=== PATIENT | male | born 1935 | race Caucasian/White ===

== ENCOUNTER → 2016-05-17 | Outpatient (CLI) | payer OTHER ==
[~2016-05-17] MED LIST: ACAR50TA2 PO; ASPI81TA28 PO; CHOL100027 PO; GLIP1TAB85 PO; LISI-790 PO; MULTTAB58 PO; OMEGCAP2 PO; SITA50TA5 PO
[2016-05-17 10:16] LABS: ESTIMATED AVERAGE GLUCOSE 157 mg/dl; HA1C FLAG Normal (Normal)
[2016-05-17 10:55] LABS: RATIO 21.2 mcg/mg (0-30.0)
== END | disposition home or self-care (01) ==
LOC: C.LAB 09:18
PROVIDERS: ATTEND Internal Medicine Endocrinology, Diabetes & Metabolism
DX: E11.43 Type 2 diabetes mellitus with diabetic autonomic (poly)neuropathy (principal); E11.21 Type 2 diabetes mellitus with diabetic nephropathy; E11.42 Type 2 diabetes mellitus with diabetic polyneuropathy; R80.9 Proteinuria, unspecified; E78.2 Mixed hyperlipidemia

== ENCOUNTER → 2016-08-13 | Outpatient (CLI) | payer OTHER ==
[2016-08-13 13:32] LABS: ESTIMATED AVERAGE GLUCOSE 160 mg/dl; HA1C FLAG Normal (Normal)
[2016-08-13 13:48] LABS: BLOOD UREA NITROGEN 25 mg/dl (7-18); BUN/CREATININE RATIO 19.4 (10-20); CALCIUM 8.7 mg/dl (8.5-10.1); CARBON DIOXIDE 31 mmol/L (21-32); CHLORIDE 103 mmol/L (98-107); GLUCOSE 226 mg/dl (70-99); POTASSIUM 4.4 mmol/L (3.5-5.1); SODIUM 140 mmol/L (136-145)
== END | disposition home or self-care (01) ==
LOC: C.LAB 12:21
PROVIDERS: ATTEND Internal Medicine Endocrinology, Diabetes & Metabolism
DX: E11.43 Type 2 diabetes mellitus with diabetic autonomic (poly)neuropathy (principal); E11.21 Type 2 diabetes mellitus with diabetic nephropathy; E11.42 Type 2 diabetes mellitus with diabetic polyneuropathy; R80.9 Proteinuria, unspecified; E78.2 Mixed hyperlipidemia

== ENCOUNTER → 2016-11-19 | Outpatient (CLI) | payer OTHER ==
[2016-11-19 10:51] LABS: BLOOD UREA NITROGEN 20 mg/dl (7-18); BUN/CREATININE RATIO 18.4 (10-20); CALCIUM 8.8 mg/dl (8.5-10.1); CARBON DIOXIDE 29 mmol/L (21-32); CHLORIDE 107 mmol/L (98-107); GLUCOSE 118 mg/dl (70-99); POTASSIUM 4.6 mmol/L (3.5-5.1); SODIUM 140 mmol/L (136-145)
[2016-11-19 11:02] LABS: CHOLESTEROL 114 mg/dl (0-200); CHOLESTEROL/HDL RATIO 3.5; HDL CHOLESTEROL 33 mg/dl; LDL CHOLESTEROL CALCULATED 66 mg/dl; TRIGLYCERIDES 75 mg/dl (0-150); VERY LOW DENSITY LIPOPROT CALC 15 mg/dl
[2016-11-19 12:54] LABS: ESTIMATED AVERAGE GLUCOSE 169 mg/dl; HA1C FLAG Normal (Normal)
== END | disposition home or self-care (01) ==
LOC: C.LAB 09:35
PROVIDERS: ATTEND Internal Medicine Endocrinology, Diabetes & Metabolism
DX: E11.43 Type 2 diabetes mellitus with diabetic autonomic (poly)neuropathy (principal); E11.21 Type 2 diabetes mellitus with diabetic nephropathy; E11.42 Type 2 diabetes mellitus with diabetic polyneuropathy; R80.9 Proteinuria, unspecified; E78.2 Mixed hyperlipidemia

== ENCOUNTER → 2017-02-26 | Outpatient (CLI) | payer OTHER ==
[2017-02-26 12:32] LABS: ESTIMATED AVERAGE GLUCOSE 177 mg/dl; HA1C FLAG Normal (Normal)
[2017-02-26 13:15] LABS: BLOOD UREA NITROGEN 19 mg/dl (7-18); BUN/CREATININE RATIO 16.8 (10-20); CALCIUM 9.2 mg/dl (8.5-10.1); CARBON DIOXIDE 29 mmol/L (21-32); CHLORIDE 101 mmol/L (98-107); CREATININE 1.11 mg/dl (0.60-1.40); GLUCOSE 217 mg/dl (70-99); POTASSIUM 4.6 mmol/L (3.5-5.1); SODIUM 137 mmol/L (136-145)
[2017-02-26 13:16] LABS: TOTAL IRON BINDING CAPACITY 311 mcg/dl (250-450)
== END | disposition home or self-care (01) ==
LOC: C.LAB 09:44
PROVIDERS: ATTEND Internal Medicine Endocrinology, Diabetes & Metabolism
DX: E11.21 Type 2 diabetes mellitus with diabetic nephropathy (principal); E11.42 Type 2 diabetes mellitus with diabetic polyneuropathy; R80.9 Proteinuria, unspecified; E78.2 Mixed hyperlipidemia; R40.0 Somnolence

== ENCOUNTER → 2017-05-29 | Outpatient (CLI) | payer OTHER ==
[2017-05-29 17:41] LABS: BLOOD UREA NITROGEN 20 mg/dl (7-18); CALCIUM 8.8 mg/dl (8.5-10.1); CARBON DIOXIDE 28 mmol/L (21-32); CREATININE 1.08 mg/dl (0.60-1.40); GLUCOSE 187 mg/dl (70-99); POTASSIUM 4.3 mmol/L (3.5-5.1); SODIUM 138 mmol/L (136-145)
[2017-05-29 17:43] LABS: CREATININE RANDOM URINE 79.1 mg/dl
[2017-05-30 06:15] LABS: HEMOGLOBIN A1C 7.6 % (4.5-5.6)
== END | disposition home or self-care (01) ==
LOC: C.LAB 15:41
PROVIDERS: ATTEND Nurse Practitioner Family
DX: E11.43 Type 2 diabetes mellitus with diabetic autonomic (poly)neuropathy (principal); E11.21 Type 2 diabetes mellitus with diabetic nephropathy; E11.42 Type 2 diabetes mellitus with diabetic polyneuropathy; R80.9 Proteinuria, unspecified; E78.2 Mixed hyperlipidemia; R40.0 Somnolence

== ENCOUNTER → 2017-09-08 | Outpatient (CLI) | payer OTHER ==
[2017-09-08 16:00] LABS: CREATININE RANDOM URINE 74.7 mg/dl
[2017-09-09 06:02] LABS: HEMOGLOBIN A1C 7.9 % (4.5-5.6)
== END | disposition home or self-care (01) ==
LOC: C.LAB 14:39
PROVIDERS: ATTEND Nurse Practitioner Family
DX: E11.43 Type 2 diabetes mellitus with diabetic autonomic (poly)neuropathy (principal); E11.42 Type 2 diabetes mellitus with diabetic polyneuropathy; E11.21 Type 2 diabetes mellitus with diabetic nephropathy; R80.9 Proteinuria, unspecified; E78.2 Mixed hyperlipidemia; R40.0 Somnolence

== ENCOUNTER → 2017-12-02 | Outpatient (CLI) | payer OTHER ==
[~2017-12-02] MED LIST changes: +DXY100 PO; +KFL250 PO; +NRN100 PO; +SIMV20TA5 PO
[2017-12-02 12:25] LABS: BLOOD UREA NITROGEN 23 mg/dl (7-18); CARBON DIOXIDE 27 mmol/L (21-32); CHOLESTEROL 115 mg/dl (0-200); GLUCOSE 132 mg/dl (70-99); LDL CHOLESTEROL CALCULATED 56 mg/dl; POTASSIUM 4.6 mmol/L (3.5-5.1); SODIUM 136 mmol/L (136-145)
[2017-12-02 12:34] LABS: HEMOGLOBIN A1C 7.9 % (4.5-5.6)
== END | disposition home or self-care (01) ==
LOC: C.LAB 09:49
PROVIDERS: ATTEND Internal Medicine Endocrinology, Diabetes & Metabolism
DX: E11.21 Type 2 diabetes mellitus with diabetic nephropathy (principal); E11.42 Type 2 diabetes mellitus with diabetic polyneuropathy; E11.51 Type 2 diabetes mellitus with diabetic peripheral angiopathy without gangrene; R80.9 Proteinuria, unspecified; E78.2 Mixed hyperlipidemia

== ENCOUNTER 2020-05-11 12:19 | Inpatient (IN) ==
--- NOTE | 2020-05-11 12:49 | Emergency Department Note ---
Impression & Plan Pancreatic mass, Transaminitis ED Provider Note NAME: MELISSA LEW AGE: 84 SEX: M : 1935 ARRIVES VIA: Ambulance INFORMANT: Patient, ED PROVIDER(S): Derrick Garcia MD Chief Complaint: Weakness, lethargy, decreased p.o. HPI: Patient is sent over from [facility] due to concerns for increasing weakness lethargy and as well as decreased eating. The patient does admit to the above and states that symptoms began this morning. The patient denies any recent falls, headaches, chest pain, shortness of breath, abdominal pain, nausea, vomiting. Patient denies any dysuria, hematuria, hematochezia or dark tarry stools. Patient denies any recent falls. The patient denies any eye pain or difficulty with his vision. The patient states that he has been trying to drink. Patient denies any known sick contacts but the patient was tested for Covid this morning. Patient did have a BSG prior to arrival in the 160s. Patient does take insulin and p.o. therapy for hyperglycemia. ROS: See HPI for pertinent positives and negatives. A total of 10 systems were reviewed and otherwise negative. Past medical history: See below Surgical history: See below Social history: See below Physical Exam: GENERAL: Tired in appearance, wearing a mask. EYE EXAM: Normal conjunctiva. PERRL, no anisocoria and EOM's grossly intact w/o pain. NECK: Supple, no nuchal rigidity, no adenopathy, non-tender. No signs of meningismus. LUNGS: Clear to auscultation. Normal chest wall mechanics. HEART: NSR, no MRG. ABDOMEN: Abdomen soft, non-tender, normo-active bowel sounds, no masses, no rebound or guarding. BACK: No CVA TTP. SKIN: No rashes and no bruising. UPPER EXTREMITIES: Upper extremities are grossly normal. LOWER EXTREMITIES: Grossly normal, no edema. NEURO EXAM: A&O x3, cranial nerves II-XII grossly intact, normal speech, moves all 4 extremities on command w/o issue. Differential diagnoses: Infection, dehydration, metabolic abnormality, hypo/hyperglycemia, electrolyte disturbance, anemia, hypoxia, cardiac sources, intracerebral event, toxicologic, neurologic, as well as other pathologies. Course: Patient was seen and evaluated the bedside. Full history physical exam was performed. EKG: Indication: Weakness Normal sinus rhythm, rate 100, wide QRS, normal axis, right bundle branch block pattern. Imaging Studies: Radiology results as stated below per my review in the radiologist's inte rpretation: ABDOMEN AND PELVIS CT WITH IV CONTRAST CT DOSE: 367.17 mGy.cm HISTORY: Acutely altered mental status with elevated LFTs. transaminitis TECHNIQUE: Multiaxial CT images of the abdomen and pelvis were performed following the IV administration of 93 cc of Optiray 320, A dose lowering te chnique was utilized adhering to the principles of ALARA. COMPARISON STUDY: None. FINDINGS: Dependent bibasilar opacities suggest atelectasis. No pneumatosis or pneumoperitoneum. Coronary artery calcifications. The spleen and adrenal glands are unremarkable. Mildly distended gallbladder with layering gallstones within the gallbladder neck and extrahepatic biliary tree which measures up to 11 mm transversely. Equivocal gallbladder wall thickening. Mild intrahepatic biliary ductal prominence. There is patency of the hepatic and portal veins. The study is mildly motion degraded. There is moderate to marked atrophy of the pancreas with pancreatic ductal dilation measuring up to 10 mm transversely. There is a heterogeneous mass within the pancreatic head which measures 3.0 x 2.8 x 5.0 cm on image 141 of series 3. The largest dimension is measured in a craniocaudal manner. The superior and medial margins of this mass abuts the confluence of the superior mesenteric and portal veins and results in mild mass effect with partial effacement of the superior mesenteric vein on image 135 series 3. The celiac trunk and superior mesenteric artery are not involved by the mass. The right lateral margin of the mass abuts the first and second portions of the duodenum. There are a few prominent periportal lymph nodes measuring up to 9 mm which are indeterminate. 1.5 cm hypoechoic lesion of the interpolar right kidney is suggestive of probable cyst. No hydronephrosis or urolith. Prostamegaly with moderate urinary bladder wall thickening and partial distention. Moderate mixed plaque of the ab dominal aorta without aneurysm. No bowel obstruction. There are a few nodular foci noted within the mid mesentery measuring up to approximately 9 mm. No bowel obstruction. Moderate fecal retention of the rectum with moderate rectal wall thickening and perirectal stranding. Normal appendix. Unremarkable soft tissues. Bones appear intact. No suspicious lytic or blastic osseous lesions. IMPRESSION: 1. Hypoattenuating mass of the pancreatic head measuring up to 5.0 cm suggestive of pancreatic adenocarcinoma results in pancreatic ductal dilation with mild dilation of the extrahepatic biliary tree. There is abutment of the portal superior mesenteric venous confluence with extrinsic mass effect and mild narrowing of the superior mesenteric vein. Additionally, there is abutment without encasement of the proximal duodenum. 2. Indeterminate prominent periportal lymph nodes with a few scattered subcentimeter nodules of the mid mesentery. Attention at follow-up recommended to exclude metastasis. 3. Distended gallbladder with cholelithiasis and equivocal gallbladder wall thickening. Layering stones are also noted within the extrahepatic biliary tree. Findings should be correlated clinically to exclude acute cholecystitis. 4. Constipation with suggested stercoral proctitis. 5. Prostamegaly with chronic bladder outlet obstruction. 6. Additional findings as above. ACT 112: Positive. There are findings on this exam that require communication between the performing entity and the patient following Patient Test Result Information Act ([place] Act 112) guidelines. The above report was generated using voice recognition software. It may contain grammatical, syntax or spelling errors. Electronically signed by: Javier Turner M.D. 05/11/2020 3:41 PM Dictated: 05/11/20 1522 Transcribed: 05/11/20 1522 SINGLE VIEW CHEST CLINICAL HISTORY: Weakness. Change in mental status. FINDINGS: An AP, portable, upright chest radiograph is obtained. No prior studies are available for comparison at the time of dictation. The examination is degraded by portable technique and patient rotation. The cardiomediastinal silhouette is unremarkable noting atherosclerotic calcification of the thoracic aorta. There is mild elevation of the left hemidiaphragm and bibasilar atelectasis. No airspace consolidation or large pleural effusion is identified. No pneumothorax is seen. The skeletal structures are osteopenic. The bony thorax is grossly intact. Degenerative change is seen in the shoulders. IMPRESSION: No acute cardiopulmonary abnormality. ACT 112: Negative or not required by law. Electronically signed by: Emir Hendrickson M.D. 05/11/2020 1:14 PM Dictated: 05/11/20 1313 Transcribed: 05/11/20 1313 Cardiac monitoring: An order was placed for continuous cardiac monitoring. The monitor shows a rate of 97 with sinus rhythm. MDM: Patient did a blood work completed along with EKG troponin chest x-ray and urinalysis. The patient was given IV fluids due to the concern for decreased p.o. intake and the fact patient looks clinically dry. He does have mild white count with a hemoglobin of 12. Platelet count slightly elevated at 480. Kidney function is unremarkable. The patient does have mild transaminitis with a negative troponin. Urinalysis shows questionable infection with nitrites and leuks but negative for bacteria or whites. Patient did have some urinary retention as straight cath placement did yield 700 cc of fluid. Given the patient's transaminitis CT the abdomen pelvis was ordered. I did reassess the patient's abdomen the patient denies any pain. Patient was ordered Zosyn. CT the abdomen pelvis did show concern for pancreatic mass and associated distention of the gallbladder with cholelithiasis and gallbladder wall thickening. I did reassess the patient's abdomen and the patient declined any pain. I did speak the on-call surgeon Dr. Nolasco who thought the patient may require a procedure particular to the pancreas in order for this to be ameliorated. Given the patient's age I thought that maybe a Whipple would be very aggressive. I did speak with the on-call jukebox checker Dr. Gandhi after discussion believes that the patient may benefit from palliation of this with a stent placement from an ERCP. Dr. Gandhi did state that placing the stent likely would improve the gallbladder distention as well as the transaminitis. I did speak with the patient as well as the patient's daughter Allison and they were all in agreement with the plan of care and would like to proceed with this course of management at this time. Covid negative. I did speak the on-call hospitalist Sydnee Encinas PA-C and the patient was to be admitted under Dr. Sage. Lipase was added. Patient was admitted to the medicine service. Past Med/Surg History Medical History Diabetes H/O: HTN (hypertension) No pertinent past medical history Surgical History No pertinent past surgical history Family History Other Medical history non-contributory Social History Smoking Status: Former smoker Feels Safe at Home: Yes Allergies Allergies Allergy/AdvReac Type Severity Reaction Status Date / Time No Known Allergies Allergy Unverified 05/11/20 13:53 Home Meds Home Medications Medication Instructions Recorded Confirmed acarbose 50 mg PO TIDM 12/17/18 05/11/20 cholecalciferol (vitamin D3) 1,000 unit PO DAILY 12/17/18 05/11/20 [Vitamin D3] insulin glargine [Lantus Solostar 20 - 25 unit SUBCUT AMPM 12/17/18 05/11/20 U-100 Insulin] lisinopril [Zestril] 2.5 mg PO DAILY 12/17/18 05/11/20 multivitamin 1 tab PO DAILY 12/17/18 05/11/20 simvastatin [Zocor] 20 mg PO PM 12/17/18 05/11/20 diclofenac sodium [Voltaren] 2 g TOPICAL TID 05/11/20 05/11/20 insulin lispro 50 unit SUBCUT DAILY 05/11/20 05/11/20 metformin 1,000 mg PO BIDM 05/11/20 05/11/20 Results & Data (ED) Vital Signs Vital Signs - 24 hr 05/11/20 12:24 05/11/20 14:20 05/11/20 15:04 Temperature 37.4 C Temperature Source Oral Pulse Rate 97 H Pulse Rate [Right Finger] 90 93 H Pulse Rate from SpO2 Sensor Respiratory Rate 19 16 16 Respiratory Effort / Characteristics Non-Labored Spontaneous Respiratory Depth Normal Normal Respiratory Pattern Regular Blood Pressure 129/82 Blood Pressure [Right Arm] 129/76 133/80 Blood Pressure Mean 97 Blood Pressure Mean [Right Arm] 93 97 Blood Pressure Position Sitting Blood Pressure Position [Right Arm] Sitting Pulse Oximetry 94 95 95 Oxygen Delivery Method Room Air Room Air Room Air Sepsis Recent Fever Within 48 Hours No Sepsis New/Unexplained Change in Mental Status N/A Sepsis Action Taken by Nursing No Action Required 05/11/20 15:44 05/11/20 15:55 05/11/20 16:00 Temperature Temperature Source Pulse Rate 88 93 H 92 H Pulse Rate [Right Finger] Pulse Rate from SpO2 Sensor 88 91 H 92 H Respiratory Rate 16 22 15 Respiratory Effort / Characteristics Respiratory Depth Respiratory Pattern Blood Pressure 128/70 Blood Pressure [Right Arm] Blood Pressure Mean 83 Blood Pressure Mean [Right Arm] Blood Pressure Position Blood Pressure Position [Right Arm] Pulse Oximetry 100 100 99 Oxygen Delivery Method Room Air Room Air Room Air Sepsis Recent Fever Within 48 Hours Sepsis New/Unexplained Change in Mental Status Sepsis Action Taken by Nursing 05/11/20 16:01 05/11/20 16:30 05/11/20 16:31 Temperature Temperature Source Pulse Rate 88 93 H 91 H Pulse Rate [Right Finger] Pulse Rate from SpO2 Sensor 88 93 H 92 H Respiratory Rate 15 10 L 14 Respiratory Effort / Characteristics Respiratory Depth Respiratory Pattern Blood Pressure 154/87 H 170/101 H Blood Pressure [Right Arm] Blood Pressure Mean 95 131 Blood Pressure Mean [Right Arm] Blood Pressure Position Blood Pressure Position [Right Arm] Pulse Oximetry 99 97 98 Oxygen Delivery Method Room Air Room Air Room Air Sepsis Recent Fever Within 48 Hours Sepsis New/Unexplained Change in Mental Status Sepsis Action Taken by Nursing 05/11/20 16:32 05/11/20 17:00 05/11/20 17:01 Temperature Temperature Source Pulse Rate 91 H 96 H 96 H Pulse Rate [Right Finger] Pulse Rate from SpO2 Sensor 94 H 98 H 97 H Respiratory Rate 17 14 19 Respiratory Effort / Characteristics Respiratory Depth Respiratory Pattern Blood Pressure 168/109 H Blood Pressure [Right Arm] Blood Pressure Mean 123 Blood Pressure Mean [Right Arm] Blood Pressure Position Blood Pressure Position [Right Arm] Pulse Oximetry 98 96 95 Oxygen Delivery Method Room Air Room Air Room Air Sepsis Recent Fever Within 48 Hours Sepsis New/Unexplained Change in Mental Status Sepsis Action Taken by Nursing 05/11/20 18:34 Temperature Temperature Source Pulse Rate Pulse Rate [Right Finger] 100 H Pulse Rate from SpO2 Sensor Respiratory Rate 18 Respiratory Effort / Characteristics Non-Labored Respiratory Depth Normal Respiratory Pattern Blood Pressure Blood Pressure [Right Arm] 133/77 Blood Pressure Mean Blood Pressure Mean [Right Arm] 95 Blood Pressure Position Blood Pressure Position [Right Arm] Lying Pulse Oximetry 96 Oxygen Delivery Method Room Air Sepsis Recent Fever Within 48 Hours Sepsis New/Unexplained Change in Mental Status Sepsis Action Taken by Snf Medications Current Medication List: was personally reviewed by me Laboratory Data Attestation: I reviewed the patient's lab results. Result diagrams: 05/11/20 12:50 05/11/20 12:50 Lab Results 05/11/20 05/11/20 05/11/20 Range/Units 12:50 12:50 12:50 WBC 17.21 H (4.8-10.8) K/uL RBC 4.17 L (4.7-6.1) M/uL Hgb 12.9 L (14.0-18.0) g/dL Hct 37.5 L (42-52) % MCV 89.9 (80-100) fL MCH 30.9 (25-34) pg MCHC 34.4 (32-36) g/dL RDW Std Deviation 45.3 (36.4-46.3) fL RDW Coeff of [place] 13.7 (11.5-14.5) % Plt Count 480 H (130-400) K/uL MPV 9.4 (7.4-10.4) fL Immature Gran % (Auto) 0.2 % Neut % (Auto) 82.1 % Lymph % (Auto) 7.4 % King % (Auto) 10.2 % Eos % (Auto) 0.0 % Baso % (Auto) 0.1 % Neut # (Auto) 14.14 H (1.4-6.5) K/uL Lymph # (Auto) 1.28 (1.2-3.4) K/uL King # (Auto) 1.75 H (0.11-0.59) K/uL Eos # (Auto) 0.00 (0-0.5) K/uL Baso # (Auto) 0.01 (0-0.2) K/uL Immature Gran # (Auto) 0.03 H (0.00-0.02) K/uL PT 11.4 (9.0-12.0) Seconds INR 1.1 (0.9-1.1) APTT 27.1 (21.0-31.0) Seconds PTT Ratio 1.0 Sodium 140 (136-145) mmol/L Potassium 4.0 (3.5-5.1) mmol/L Chloride 106 (98-107) mmol/L Carbon Dioxide 26 (21-32) mmol/L Anion Gap 8.0 (3-11) BUN 20 H (7-18) mg/dl Creatinine 1.28 (0.6-1.4) mg/dl Est Cr Clr Drug Dosing 42.9 ml/min Est GFR ( Amer) 58.3 Est GFR (Non-Af Amer) 50.3 BUN/Creatinine Ratio 15.6 (10-20) Glucose 162 H (70-99) mg/dl Calcium 9.6 (8.5-10.1) mg/dl Magnesium 2.0 (1.8-2.4) mg/dl Total Bilirubin 1.3 H (0.2-1) mg/dl AST 143 H (15-37) U/L ALT 390 H (12-78) U/L Alkaline Phosphatase 496 H (45-117) U/L Troponin I < 0.015 (0-0.045) ng/ml Total Protein 7.9 (6.4-8.2) gm/dl Albumin 3.4 (3.4-5.0) gm/dl Globulin 4.5 H (2.5-4.0) gm/dl Albumin/Globulin Ratio 0.8 L (0.9-2) TSH 1.790 (0.300-4.500) uIu/ml Urine Color Urine Appearance (Clear) Urine pH (4.5-7.5) Ur Specific [place] (1.000-1.030) Urine Protein (Negative) Urine Glucose (UA) (Negative) Urine Ketones (Negative) Urine Blood (Negative) Urine Nitrite (Negative) Urine Bilirubin (Negative) Urine Urobilinogen (Negative) Ur Leukocyte Esterase (Negative) Urine WBC (Auto) (0-5) /hpf Urine RBC (Auto) (0-4) /hpf U Hyaline Cast (Auto) (0-5) /lpf U Epithel Cells (Auto) (0-5) /lpf Urine Bacteria (Auto) (Negative) SARS-CoV-2 Ag (Rapid) (Negative) 05/11/20 05/11/20 Range/Units 14:30 Unknown WBC (4.8-10.8) K/uL RBC (4.7-6.1) M/uL Hgb (14.0-18.0) g/dL Hct (42-52) % MCV (80-100) fL MCH (25-34) pg MCHC (32-36) g/dL RDW Std Deviation (36.4-46.3) fL RDW Coeff of [place] (11.5-14.5) % Plt Count (130-400) K/uL MPV (7.4-10.4) fL Immature Gran % (Auto) % Neut % (Auto) % Lymph % (Auto) % King % (Auto) % Eos % (Auto) % Baso % (Auto) % Neut # (Auto) (1.4-6.5) K/uL Lymph # (Auto) (1.2-3.4) K/uL King # (Auto) (0.11-0.59) K/uL Eos # (Auto) (0-0.5) K/uL Baso # (Auto) (0-0.2) K/uL Immature Gran # (Auto) (0.00-0.02) K/uL PT (9.0-12.0) Seconds INR (0.9-1.1) APTT (21.0-31.0) Seconds PTT Ratio Sodium (136-145) mmol/L Potassium (3.5-5.1) mmol/L Chloride (98-107) mmol/L Carbon Dioxide (21-32) mmol/L Anion Gap (3-11) BUN (7-18) mg/dl Creatinine (0.6-1.4) mg/dl Est Cr Clr Drug Dosing ml/min Est GFR ( Amer) Est GFR (Non-Af Amer) BUN/Creatinine Ratio (10-20) Glucose (70-99) mg/dl Calcium (8.5-10.1) mg/dl Magnesium (1.8-2.4) mg/dl Total Bilirubin (0.2-1) mg/dl AST (15-37) U/L ALT (12-78) U/L Alkaline Phosphatase (45-117) U/L Troponin I (0-0.045) ng/ml Total Protein (6.4-8.2) gm/dl Albumin (3.4-5.0) gm/dl Globulin (2.5-4.0) gm/dl Albumin/Globulin Ratio (0.9-2) TSH (0.300-4.500) uIu/ml Urine Color [place] Urine Appearance Clear (Clear) Urine pH 5.0 (4.5-7.5) Ur Specific [place] 1.027 (1.000-1.030) Urine Protein 1+ H (Negative) Urine Glucose (UA) 2+ H (Negative) Urine Ketones Trace H (Negative) Urine Blood Trace H (Negative) Urine Nitrite Positive A (Negative) Urine Bilirubin 1+ H (Negative) Urine Urobilinogen Negative (Negative) Ur Leukocyte Esterase Trace H (Negative) Urine WBC (Auto) 0 (0-5) /hpf Urine RBC (Auto) 5-10 H (0-4) /hpf U Hyaline Cast (Auto) 1-5 (0-5) /lpf U Epithel Cells (Auto) 0-5 (0-5) /lpf Urine Bacteria (Auto) Negative (Negative) SARS-CoV-2 Ag (Rapid) Negative (Negative) Administered Medications Discontinued Medications Sodium Chloride (Nss 1000ml) 1,000 mls @ 999 mls/hr IV .Q1H1M TRUDI Stop: 05/11/20 14:00 Last Infusion: 05/11/20 14:35 Dose: 0 mls/hr Documented by: [id number] Admin: 05/11/20 13:12 Dose: 999 mls/hr Documented by: [id number] Piperacillin Sod/Tazobactam Sod (Zosyn) 4.5 gm in 120 mls @ 240 mls/hr IV NOW ONE Stop: 05/11/20 16:46 Last Admin: 05/11/20 17:29 Dose: 240 mls/hr Documented by: [id number] Ioversol (Ioversol 100ml) 93 ml IV ONCE ONE Stop: 05/11/20 15:17 Last Admin: 05/11/20 15:16 Dose: 93 ml Documented by: [id number] Discharge Plan Visit Data Chief Complaint: Lethargic ED Provider: Derrcik Garcia Discharge Problem: Pancreatic mass, Transaminitis Forms Stand Alone Forms: [facility] Prescriptions Prescriptions: No Action lisinopril [Zestril] 5 mg tablet 2.5 mg PO DAILY RF: 0 multivitamin Tablet 1 tab PO DAILY RF: 0 simvastatin [Zocor] 20 mg tablet 20 mg PO PM RF: 0 cholecalciferol (vitamin D3) [Vitamin D3] 1,000 unit Tablet,Chewable 1,000 unit PO DAILY RF: 0 Lantus Solostar U-100 Insulin 100 unit/mL (3 mL) insulin pen 20 - 25 unit subcut AMPM RF: 0 acarbose 50 mg tablet 50 mg PO TIDM RF: 0 metformin 1,000 mg tablet 1,000 mg PO BIDM RF: 0 insulin lispro 100 unit/mL insulin pen 50 unit SUBCUT DAILY RF: 0 diclofenac sodium [Voltaren] 1 % Gel 2 g TOPICAL TID RF: 0
[2020-05-11] MEDS ORDERED: SODIUM CHLORIDE 0.9% 1000ML 1,000 ML IV SCH (13:00)
[2020-05-11 13:10] LABS: Basophils # (auto) 0.01 K/uL (0-0.2); Basophils % (auto) 0.1 %; Hematocrit (blood only) 37.5 % (42-52); Hemoglobin 12.9 g/dL (14.0-18.0); Immature Granulocytes # (auto) 0.03 K/uL (0.00-0.02); Immature Granulocytes % (auto) 0.2 %; Lymphocytes # (auto) 1.28 K/uL (1.2-3.4); Lymphocytes % (auto) 7.4 %; Mean Corpuscular Hemoglobin 30.9 pg (25-34); Mean Corpuscular Hgb Conc 34.4 g/dL (32-36); Mean Corpuscular Volume 89.9 fL (80-100); Mean Platelet Volume 9.4 fL (7.4-10.4); Monocytes # (auto) 1.75 K/uL (0.11-0.59); Monocytes % (auto) 10.2 %; Neutrophils # (auto) 14.14 K/uL (1.4-6.5); Neutrophils % (auto) 82.1 %; Platelet Count 480 K/uL (130-400); RDW Coefficient of Variation 13.7 % (11.5-14.5); RDW Standard Deviation 45.3 fL (36.4-46.3); Red Blood Count 4.17 M/uL (4.7-6.1); White Blood Count 17.21 K/uL (4.8-10.8)
--- NOTE | 2020-05-11 13:16 | XRay Report ---
SINGLE VIEW CHEST CLINICAL HISTORY: Weakness. Change in mental status. FINDINGS: An AP, portable, upright chest radiograph is obtained. No prior studies are available for c omparison at the time of dictation. The examination is degraded by portable technique and patient rot ation. The cardiomediastinal silhouette is unremarkable noting atherosclerotic calcification of the thoracic aorta. There is mild elevation of the left hemidiaphragm and bibasilar atelectasis. No airsp jayda consolidation or large pleural effusion is identified. No pneumothorax is seen. The skeletal stru ctures are osteopenic. The bony thorax is grossly intact. Degenerative change is seen in the shoulder s. IMPRESSION: No acute cardiopulmonary abnormality. ACT 112: Negative or not required by law. Electronically signed by: Emir Hendrickson M.D. 05/11/2020 1:14 PM
[2020-05-11 13:29] LABS: Alanine Aminotransferase 390 U/L (12-78); Albumin Level 3.4 gm/dl (3.4-5.0); Aspartate Aminotransferase 143 U/L (15-37); BUN Creatinine Ratio 15.6 (10-20); Blood Urea Nitrogen 20 mg/dl (7-18); Calcium 9.6 mg/dl (8.5-10.1); Carbon Dioxide 26 mmol/L (21-32); Chloride 106 mmol/L (98-107); Creatinine Clr Calc Pharmacy 42.9 ml/min; Est GFR (African American) 58.3; Est GFR (Non-African American) 50.3; Glucose 162 mg/dl (70-99); Sodium 140 mmol/L (136-145)
[2020-05-11 13:40] LABS: Albumin Globulin Ratio 0.8 (0.9-2); Alkaline Phosphatase 496 U/L (45-117); Bilirubin,Total 1.3 mg/dl (0.2-1); Globulin 4.5 gm/dl (2.5-4.0); Total Protein 7.9 gm/dl (6.4-8.2); Troponin I < 0.015 ng/ml (0-0.045)
[2020-05-11 14:45] LABS: Appearance Urine Clear (Clear); Bacteria Urine Automated Negative (Negative); Blood Urine Trace (Negative); Color Urine Orange; Epithelial Cell Urine Auto 0-5 /lpf (0-5); Glucose Urine UA 2+ (Negative); Ketones Urine Trace (Negative); Leukocyte Esterase Urine Trace (Negative); Nitrite Urine Positive (Negative); Protein Urine 1+ (Negative); Specific Gravity Urine 1.027 (1.000-1.030); Urobilinogen Urine Negative (Negative); WBC Urine Automated 0 /hpf (0-5)
[2020-05-11 14:49] LABS: Bilirubin Urine 1+ (Negative)
[2020-05-11] MEDS ORDERED: IOVERSOL 100ml IV ONE (15:16)
--- NOTE | 2020-05-11 15:42 | CT Scan Report ---
ABDOMEN AND PELVIS CT WITH IV CONTRAST CT DOSE: 367.17 mGy.cm HISTORY: Acutely altered mental status with elevated LFTs. transaminitis TECHNIQUE: Multiaxial CT images of the abdomen and pelvis were performed following the IV administrat ion of 93 cc of Optiray 320, A dose lowering technique was utilized adhering to the principles of AL SADI. COMPARISON STUDY: None. FINDINGS: Dependent bibasilar opacities suggest atelectasis. No pneumatosis or pneumoperitoneum. [place] nary artery calcifications. The spleen and adrenal glands are unremarkable. Mildly distended gallblad ulices with layering gallstones within the gallbladder neck and extrahepatic biliary tree which measures up to 11 mm transversely. Equivocal gallbladder wall thickening. Mild intrahepatic biliary ductal pr ominence. There is patency of the hepatic and portal veins. The study is mildly motion degraded. There is moderate to marked atrophy of the pancreas with pancreatic ductal dilation measuring up to 1 0 mm transversely. There is a heterogeneous mass within the pancreatic head which measures 3.0 x 2.8 x 5.0 cm on image 141 of series 3. The largest dimension is measured in a craniocaudal manner. The [place] perior and medial margins of this mass abuts the confluence of the superior mesenteric and portal vei ns and results in mild mass effect with partial effacement of the superior mesenteric vein on image 1 35 series 3. The celiac trunk and superior mesenteric artery are not involved by the mass. The right lateral margin of the mass abuts the first and second portions of the duodenum. There are a few promi nent periportal lymph nodes measuring up to 9 mm which are indeterminate. 1.5 cm hypoechoic lesion of the interpolar right kidney is suggestive of probable cyst. No hydronephr osis or urolith. Prostamegaly with moderate urinary bladder wall thickening and partial distention. M oderate mixed plaque of the abdominal aorta without aneurysm. No bowel obstruction. There are a few n odular foci noted within the mid mesentery measuring up to approximately 9 mm. No bowel obstruction. Moderate fecal retention of the rectum with moderate rectal wall thickening and perirectal stranding. Normal appendix. Unremarkable soft tissues. Bones appear intact. No suspicious lytic or blastic osse ous lesions. IMPRESSION: 1. Hypoattenuating mass of the pancreatic head measuring up to 5.0 cm suggestive of pancreatic adenoc arcinoma results in pancreatic ductal dilation with mild dilation of the extrahepatic biliary tree. T here is abutment of the portal superior mesenteric venous confluence with extrinsic mass effect and m ild narrowing of the superior mesenteric vein. Additionally, there is abutment without encasement of the proximal duodenum. 2. Indeterminate prominent periportal lymph nodes with a few scattered subcentimeter nodules of the m id mesentery. Attention at follow-up recommended to exclude metastasis. 3. Distended gallbladder with cholelithiasis and equivocal gallbladder wall thickening. Layering ston es are also noted within the extrahepatic biliary tree. Findings should be correlated clinically to e xclude acute cholecystitis. 4. Constipation with suggested stercoral proctitis. 5. Prostamegaly with chronic bladder outlet obstruction. 6. Additional findings as above. ACT 112: Positive. There are findings on this exam that require communication between the performing entity and the patient following Patient Test Result Information Act ([place] Act 112) guidelines. The above report was generated using voice recognition software. It may contain grammatical, syntax o r spelling errors. Electronically signed by: Javier Turner M.D. 05/11/2020 3:41 PM
[2020-05-11] MEDS ORDERED: PIPERACILL/TAZOBAC CONSULT ACTIVE PRN ×2 (16:17→21:14)
[2020-05-11] MEDS ORDERED: PIPERACILLIN/TAZOBACTAM 4.5 GM/120 ML BAG IV ONE (16:17)
--- NOTE | 2020-05-11 17:54 | History & Physical Report ---
Date of Service May 11, 2020 Assessment & Plan (1) Pancreatic mass: (2) Transaminitis: This is an 84-year-old male who resides at [facility] with PMH of type 2 diabetes, hypertension, dementia and other medical problems listed below who presents with generalized weakness and decreased appetite for the past few days and was found to have a pancreatic mass as well as a UTI. -Leukocytosis of 17, platelet count of 420, T bili of 1.3, AST of 143, ALT of 390 and alk phos of 496 -CT abdomen pelvis with evidence of pancreatic head mass measuring up to 5.0 cm suggestive of pancreatic adenocarcinoma resulting in pancreatic ductal dilation with mild dilation of the extrahepatic biliary tree. Also with distended gallbladder with cholelithiasis -Family not interested in pursuing pursue invasive measures such as surgery -ED physician discussed ERCP with gastroenterology as a potential palliative option, family is agreeable -Clears this evening, NPO after midnight -Routine GI consult -Gentle IV fluids, antiemetics, IV Zosyn, follow blood cultures (3) Complicated UTI (urinary tract infection): Abnormal UA. Urine culture and blood cultures pending. Continue empiric Zosyn -Prostamegaly with chronic bladder outlet obstruction on CT abd/pelvis -Bladder scan PRN (4) Diabetes: Hold home agents -SSI while in-patient -BSG AC HS (5) HTN (hypertension): Holding lisinopril. Hydralazine PRN for SBP >160 (6) Constipation: Constipation with suggested stercoral proctitis on CT abd/pelvis -Miralax DVT Ppx: SCDs for now. Plan to transtion to chemical VTE following procedure Code status: DNR PCP: Prudencio Dispo: Admit to med/surg. Discharge planning ordered. Patient seen in collaboration with . Please see addendum. History of Present Illness Chief Complaint: Generalized weakness, decreased appetite Primary Care Provider: Elsy Flannery, DO This is an 84-year-old male who resides at [facility] with PMH of type 2 diabetes, hypertension, dementia and other medical problems listed below who presents with generalized weakness and decreased appetite for the past few days. Patient has some dementia at baseline but has been more lethargic for the past few days with decreased appetite, per SNF staff. Also has had a few episodes of fecal incontinence, which is abnormal for him. Denies any fever chills. No abdominal pain. No headache, lightheadedness, chest pain, shortness of breath, nausea, vomiting or dysuria. Denies any melena or hematochezia. In ED, patient found to have leukocytosis of 17, platelet count of 420, T bili of 1.3, AST of 143, ALT of 390 and alk phos of 496. CT abdomen pelvis with ev idence of pancreatic head mass measuring up to 5.0 cm suggestive of pancreatic adenocarcinoma resulting in pancreatic ductal dilation with mild dilation of the extrahepatic biliary tree. Also with distended gallbladder with cholelithiasis. ED physician discussed with general surgery, who recommended transfer to tertiary care facility. However, due to patient's age and previously stated wishes, daughter does not want to pursue invasive measures such as surgery. ED physician also discussed ERCP with gastroenterology as a potential palliative option, which family is currently discussing. Will continue IV fluids and antibiotics for likely UTI. Clear liquids for now and n.p.o. after midnight in case of ERCP. Patient is a DNR per discussion with daughter (POA). Allergies Allergy/AdvReac Type Severity Reaction Status Date / Time No Known Allergies Allergy Unverified 05/11/20 13:53 Home Medications Medication Instructions Recorded Confirmed Type acarbose 50 mg PO TIDM 12/17/18 05/11/20 History cholecalciferol (vitamin D3) 1,000 unit PO DAILY 12/17/18 05/11/20 History [Vitamin D3] insulin glargine [Lantus Solostar 20 - 25 unit SUBCUT AMPM 12/17/18 05/11/20 History U-100 Insulin] lisinopril [Zestril] 2.5 mg PO DAILY 12/17/18 05/11/20 History multivitamin 1 tab PO DAILY 12/17/18 05/11/20 History simvastatin [Zocor] 20 mg PO PM 12/17/18 05/11/20 History diclofenac sodium [Voltaren] 2 g TOPICAL TID 05/11/20 05/11/20 History insulin lispro 50 unit SUBCUT DAILY 05/11/20 05/11/20 History metformin 1,000 mg PO BIDM 05/11/20 05/11/20 History Past Med/Surg History Medical History Diabetes HTN (hypertension) Surgical History No pertinent past surgical history Family History (Updated 05/11/20 @ 20:10 by Sydnee Encinas PA-C) Other Heart disease Social History (Updated 05/11/20 @ 20:12 by Sydnee Encinas PA-C) Smoking Status: Former smoker Hx Alcohol Use: No Hx Substance Use: No Beliefs That Will Affect Care: None Current Living Situation: [facility] Feels Safe at Home: Yes Assistive Devices: Walker Review of Systems Review of Systems: At least ten systems reviewed and negative except as noted in the HPI. Physical Exam Physical Exam: General Appearance: WD/WN, vitals as above, NAD, pleasant, conversing easily Head: normocephalic, atraumatic Eyes: normal inspection, PERRL, conjunctivae normal, anicteric sclerae ENT: external ear and nose normal, oropharynx normal Neck: normal visual inspection, trachea midline, no thyromegaly Respiratory: normal respiratory effort, lungs clear to auscultation, no wheeze, rales, rhonchi. No accessory muscle use Cardiovascular: regular rate, rhythm, + systolic murmur, normal peripheral pulses, no BLE edema. Vessels: no JVD Chest: normal inspection of chest Abdomen/GI: normal bowel sounds, soft, nontender, no hepatosplenomegaly Extremities/Musculoskeletal: no cyanosis or clubbing, extremities motor strength 5/5 Neurologic: PERRL, EOMI, accommodation nl, no face palsy, no dysarthria, CN's II-XI intact bilaterally and moves all extremities Psychiatric: A+O to person and place , euthymic affect Skin: no rashes, normal color, warm/dry Results & Data Results & Data ([facility] [place]) Vital Signs (Past 12 Hours) Vital Signs Temp Pulse Pulse Resp BP BP Pulse Ox 05/11/20 17:01 96 H 19 168/109 H 95 05/11/20 17:00 96 H 14 96 05/11/20 16:32 91 H 17 98 05/11/20 16:31 91 H 14 170/101 H 98 05/11/20 16:30 93 H 10 L 97 05/11/20 16:01 88 15 154/87 H 99 05/11/20 16:00 92 H 15 99 05/11/20 15:55 93 H 22 128/70 100 05/11/20 15:44 88 16 100 05/11/20 15:04 93 H 16 133/80 95 05/11/20 14:20 90 16 129/76 95 05/11/20 12:24 37.4 C 97 H 19 129/82 94 Laboratory Results Short CBC 05/11/20 Range/Units 12:50 WBC 17.21 H (4.8-10.8) K/uL Hgb 12.9 L (14.0-18.0) g/dL Hct 37.5 L (42-52) % Plt Count 480 H (130-400) K/uL BMP 05/11/20 12:50 Sodium 140 Potassium 4.0 Chloride 106 Carbon Dioxide 26 BUN 20 H Creatinine 1.28 Glucose 162 H Calcium 9.6 Cardiac Enzymes 05/11/20 Range/Units 12:50 Troponin I < 0.015 (0-0.045) ng/ml Liver Function 05/11/20 Range/Units 12:50 Total Bilirubin 1.3 H (0.2-1) mg/dl AST 143 H (15-37) U/L ALT 390 H (12-78) U/L Alkaline Phosphatase 496 H (45-117) U/L Albumin 3.4 (3.4-5.0) gm/dl Urine 05/11/20 Range/Units 14:30 Urine Color [place] Urine Appearance Clear (Clear) Urine pH 5.0 (4.5-7.5) Ur Specific [place] 1.027 (1.000-1.030) Urine Protein 1+ H (Negative) Urine Glucose (UA) 2+ H (Negative) Diagnostic Findings CXR: IMPRESSION: No acute cardiopulmonary abnormality. CT abd/pelvis: IMPRESSION: 1. Hypoattenuating mass of the pancreatic head measuring up to 5.0 cm suggestive of pancreatic adenocarcinoma results in pancreatic ductal dilation with mild dilation of the extrahepatic biliary tree. There is abutment of the portal superior mesenteric venous confluence with extrinsic mass effect and mild narrowing of the superior mesenteric vein. Additionally, there is abutment without encasement of the proximal duodenum. 2. Indeterminate prominent periportal lymph nodes with a few scattered subcentimeter nodules of the mid mesentery. Attention at follow-up recommended to exclude metastasis. 3. Distended gallbladder with cholelithiasis and equivocal gallbladder wall thickening. Layering stones are also noted within the extrahepatic biliary tree. Findings should be correlated clinically to exclude acute cholecystitis. 4. Constipation with suggested stercoral proctitis. 5. Prostamegaly with chronic bladder outlet obstruction. 6. Additional findings as above. ECG Rhythm: normal sinus Findings: + nonspecific-ST abn and + RBBB Code Status & VTE Plan VTE Prophylaxis Plan VTE Prophylaxis will be ordered: Yes Supervising Physician Co-Signing Physician Notes Attending note: Patient seen and examined, care coordinated with Sydnee Encinas PA-C. This is an unfortunate 84-year-old male with baseline dementia, comorbidities as outlined by Sydnee Encinas PA-C in H&P. Admitted with confusion, lethargy, noted to have positive UA suggestive of urine tract infection. The abdomen pelvis incidental finding of large pancreatic mass, suggestive of pancreatic adeno CA. Physical exam, as per Sydnee Encinas PA-C Patient has baseline dementia, was lethargic on admission, after receiving fluids and IV antibiotic, more awake and alert, Explained CT findings to patient and his daughter, patient is unable to comprehend his diagnosis Patient's daughter and POA was present at bedside, After discussion with her mother, they are wanting to have ERCP if it provides palliation with pancreatic stent to improve symptoms. Not want any aggressive treatment surgery or chemo showed biopsy, expects positive for carcinoma. With his advanced age and comorbidity patient would be a poor candidate for pancreatic surgery. Patient is started with clears, will be kept n.p.o. past midnight for procedure in a.m., GI consulted IV Zosyn empirically for UTI, follow urine culture. Metabolic encephalopathy on admission possible secondary to dehydration and UTI, LFTs were mildly elevated due to pancreatic mass obstruction, mild elevation of bilirubin, Lactic acid procalcitonin within normal limit, ammonia within normal limit. Continue antibiotic gentle IV fluids Baseline dementia, observe precaution, caution for ing. CODE STATUS discussed with patient's daughter Allison has copy of the living will, DNR/DNI Disposition: Patient is a resident at [facility], and to return back to [facility]. Talisha Sage MD
[2020-05-11 18:42] LABS: INR 1.1 (0.9-1.1); Partial Thromboplastin Time 27.1 Seconds (21.0-31.0); Prothrombin Time 11.4 Seconds (9.0-12.0)
[2020-05-11] MEDS ORDERED: MoRPHine SULFATE 2 MG/ML CARP IV PRN (20:57)
[2020-05-11] MEDS ORDERED: POLYETHYLENE (MIRALAX) 17 GM PACK PO ONE (21:04)
[2020-05-11] MEDS ORDERED: hydrALAZINE HCL 20 MG/ML VIAL IV PRN (21:14)
[2020-05-11] MEDS ORDERED: DEXTROSE 50% 50 ML SYRINGE IV PRN (21:14)
[2020-05-11] MEDS ORDERED: GLUCAGON FOR INJ 1 MG VIAL SQ PRN (21:14)
[2020-05-11] MEDS ORDERED: GLUCOSE 10 TABS/TUBE PO PRN (21:14)
[2020-05-11] MEDS ORDERED: ONDANSETRON INJ 2 MG/ML 2 ML VIAL IV PRN (21:14)
[2020-05-11] MEDS ORDERED: CONSULT PHARMACY STA (21:14)
[2020-05-11] MEDS ORDERED: GLUCOSE 40% GEL 15 GM TUBE PO PRN (21:14)
[2020-05-11] MEDS: SODIUM CHLORIDE 0.9% 500 ML IV SCH ×2 (21:17→21:41)
[2020-05-11] MEDS: INSULIN ASPART 100 UNITS/ML 3 ML PEN SC SCH (21:24)
[2020-05-11 21:41] LABS: INR 1.1 (0.9-1.1); Prothrombin Time 11.4 Seconds (9.0-12.0)
[2020-05-11] MEDS: PIPERACILLIN/TAZOBACTAM 3.375 GM in DEXTROSE 5% 100 ML IV SCH (21:41)
[2020-05-12] MEDS: PIPERACILLIN/TAZOBACTAM 3.375 GM in DEXTROSE 5% 100 ML IV SCH ×3 (05:21→22:25)
[2020-05-12 06:18] LABS: Basophils # (auto) 0.02 K/uL (0-0.2); Basophils % (auto) 0.1 %; Eosinophils # (auto) 0.02 K/uL (0-0.5); Eosinophils % (auto) 0.1 %; Hemoglobin 12.6 g/dL (14.0-18.0); Immature Granulocytes # (auto) 0.04 K/uL (0.00-0.02); Immature Granulocytes % (auto) 0.2 %; Lymphocytes # (auto) 1.41 K/uL (1.2-3.4); Lymphocytes % (auto) 8.5 %; Mean Corpuscular Hemoglobin 30.7 pg (25-34); Mean Corpuscular Hgb Conc 34.1 g/dL (32-36); Mean Corpuscular Volume 90.2 fL (80-100); Mean Platelet Volume 9.7 fL (7.4-10.4); Monocytes # (auto) 1.51 K/uL (0.11-0.59); Monocytes % (auto) 9.1 %; Neutrophils # (auto) 13.54 K/uL (1.4-6.5); Platelet Count 417 K/uL (130-400); RDW Coefficient of Variation 13.9 % (11.5-14.5); RDW Standard Deviation 45.7 fL (36.4-46.3); White Blood Count 16.54 K/uL (4.8-10.8)
--- NOTE | 2020-05-12 06:44 | Electrocardiogram Report ---
Test Reason : Blood Pressure : / mmHG Vent. Rate : 100 BPM Atrial Rate : 100 BPM P-R Int : 188 ms QRS Dur : 128 ms QT Int : 372 ms P-R-T Axes : 075 062 -15 degrees QTc Int : 479 ms Normal sinus rhythm Right bundle branch block T wave abnormality, consider inferior ischemia Abnormal ECG When compared with ECG of 03-AUG-2012 18:17, Non-specific change in ST segment in Inferior leads Non-specific change in ST segment in Anterior leads T wave inversion now evident in Inferior leads T wave inversion now evident in Anterior leads Confirmed by Aron Martin ([id number]) on 05/12/2020 6:44:06 AM Referred By: REFERRED SELF Confirmed By:Aron Martin
[2020-05-12 07:05] LABS: Albumin Globulin Ratio 0.7 (0.9-2); Bilirubin,Total 1.3 mg/dl (0.2-1); Creatinine Clr Calc Pharmacy 48.8 ml/min; Est GFR (African American) 73.3; Est GFR (Non-African American) 63.2; Globulin 4.1 gm/dl (2.5-4.0); Potassium 3.7 mmol/L (3.5-5.1); Total Protein 7.1 gm/dl (6.4-8.2)
[2020-05-12] MEDS: MULTIVITAMIN TAB PO SCH (07:39)
[2020-05-12 07:47] LABS: Estimated Average Glucose 180 mg/dl; Hemoglobin A1C 7.9 % (4.5-5.6)
--- NOTE | 2020-05-12 08:25 | Anesthesiology Consultation ---
Date of Service May 12, 2020 Covid 19 negative on 05/11/19. The patient has TWI on EKG. He is high risk but the procedure is being done for palliative reasons. Assessment & Plan (1) Encounter for pre-operative examination: Chart Review Chart Review: Acceptable Risk for Surgery (elevated risk, but procedure is palliative) and Patient NOT seen in Pre Admission Testing Consults Requested none medicine is following History Surgery Operation Date: 05/12/20 08:35 Proposed Procedures p Endoscopic Ultrasonography Upper - Cary Simons DO s Endoscopic Retrograde Cholangiopancreatogram - Cary Simons DO Height/Weight Height: 5 ft 11 in Weight: 68.9 kg Allergies Allergy/AdvReac Type Severity Reaction Status Date / Time No Known Allergies Allergy Unverified 05/11/20 13:53 Medications Home Medications Medication Instructions Recorded Confirmed Last Taken acarbose 50 mg PO TIDM 12/17/18 05/11/20 12/20/18 cholecalciferol (vitamin D3) 1,000 unit PO DAILY 12/17/18 05/11/20 12/20/18 [Vitamin D3] insulin glargine [Lantus Solostar 20 - 25 unit SUBCUT AMPM 12/17/18 05/11/20 12/20/18 U-100 Insulin] lisinopril [Zestril] 2.5 mg PO DAILY 12/17/18 05/11/20 12/20/18 multivitamin 1 tab PO DAILY 12/17/18 05/11/20 12/20/18 simvastatin [Zocor] 20 mg PO PM 12/17/18 05/11/20 12/20/18 diclofenac sodium [Voltaren] 2 g TOPICAL TID 05/11/20 05/11/20 Unknown insulin lispro 50 unit SUBCUT DAILY 05/11/20 05/11/20 Unknown metformin 1,000 mg PO BIDM 05/11/20 05/11/20 Unknown Active Medications Generic Name Dose Route Start Last Admin Trade Name Freq PRN Reason Stop Dose Admin Piperacillin Sod/Tazobactam 115 mls @ 28.75 mls/hr 05/11/20 20:57 05/12/20 05:21 Sod 3.375 gm/ Dextrose IV 05/16/20 20:56 28.8 mls/hr Q8H TRUDI Administration Protocol Insulin Aspart 0 units 05/11/20 21:00 05/11/20 21:24 Insulin Aspart 100 Units/Ml 3 Ml Pen SC 06/10/20 20:59 Not Given ACHS TRUDI Multivitamins 1 tab 05/12/20 09:00 05/12/20 07:39 Multivitamin Tab PO 06/11/20 08:59 Not Given DAILY TRUDI Past Medical History Medical History (Updated 05/12/20 @ 08:39 by Jean Pierre Crocker MD) Complicated UTI (urinary tract infection) Constipation Dementia Diabetes HTN (hypertension) Pancreatic mass T wave inversion in EKG Past Family History Family History Other Heart disease Past Surgical History Surgical History No pertinent past surgical history Social History Smoking Status: Former smoker Hx Alcohol Use: No Hx Substance Use: No Physical Exam Vital Signs Last Vital Signs Temp 36.9 C 05/12/20 07:14 Pulse 95 H 05/12/20 07:15 Resp 16 05/12/20 07:14 BP 172/82 H 05/12/20 07:14 Pulse Ox 93 05/12/20 07:14 Testing Laboratory Results 05/12/20 05:47 05/12/20 05:47 PT 11.4 Seconds (9.0-12.0) 05/11/20 21:16 INR 1.1 (0.9-1.1) 05/11/20 21:16 APTT 27.1 Seconds (21.0-31.0) 05/11/20 12:50 Hemoglobin A1c 7.9 % (4.5-5.6) H 05/11/20 21:16 Urine Color [place] 05/11/20 14:30 Urine Appearance Clear (Clear) 05/11/20 14:30 Urine pH 5.0 (4.5-7.5) 05/11/20 14:30 Ur Specific [place] 1.027 (1.000-1.030) 05/11/20 14:30 Urine Protein 1+ (Negative) H 05/11/20 14:30 Urine Glucose (UA) 2+ (Negative) H 05/11/20 14:30 Urine Ketones Trace (Negative) H 05/11/20 14:30 Urine Nitrite Positive (Negative) A 05/11/20 14:30 Ur Leukocyte Esterase Trace (Negative) H 05/11/20 14:30 Urine WBC (Auto) 0 /hpf (0-5) 05/11/20 14:30 Urine RBC (Auto) 5-10 /hpf (0-4) H 05/11/20 14:30 U Hyaline Cast (Auto) 1-5 /lpf (0-5) 05/11/20 14:30 U Epithel Cells (Auto) 0-5 /lpf (0-5) 05/11/20 14:30 Urine Bacteria (Auto) Negative (Negative) 05/11/20 14:30 05/12/20 05/11/20 08:29 20:55 POC Glucose 158 H 128 H Electrocardiogram Date: 05/11/20 Findings: + RBBB and + T wave inversion (inferior, anterior) Chest X-Ray Date: 05/11/20 SINGLE VIEW CHEST CLINICAL HISTORY: Weakness. Change in mental status. FINDINGS: An AP, portable, upright chest radiograph is obtained. No prior studies are available for comparison at the time of dictation. The examination is degraded by portable technique and patient rotation. The cardiomediastinal silhouette is unremarkable noting atherosclerotic calcification of the thoracic aorta. There is mild elevation of the left hemidiaphragm and bibasilar atelectasis. No airspace consolidation or large pleural effusion is identified. No pneumothorax is seen. The skeletal structures are osteopenic. The bony thorax is grossly intact. Degenerative change is seen in the shoulders. IMPRESSION: No acute cardiopulmonary abnormality. ACT 112: Negative or not required by law. Electronically signed by: Emir Hendrickson M.D. 05/11/2020 1:14 PM Dictated: 05/11/20 1313Transcribed: 05/11/20 1313 Other Testing ABDOMEN AND PELVIS CT WITH IV CONTRAST CT DOSE: 367.17 mGy.cm HISTORY: Acutely altered mental status with elevated LFTs. transaminitis TECHNIQUE: Multiaxial CT images of the abdomen and pelvis were performed following the IV administration of 93 cc of Optiray 320, A dose lowering technique was utilized adhering to the principles of ALARA. COMPARISON STUDY: None. FINDINGS: Dependent bibasilar opacities suggest atelectasis. No pneumatosis or pneumoperitoneum. Coronary artery calcifications. The spleen and adrenal glands are unremarkable. Mildly distended gallbladder with layering gallstones within the gallbladder neck and extrahepatic biliary tree which measures up to 11 mm transversely. Equivocal gallbladder wall thickening. Mild intrahepatic biliary ductal prominence. There is patency of the hepatic and portal veins. The study is mildly motion degraded. There is moderate to marked atrophy of the pancreas with pancreatic ductal dilation measuring up to 10 mm transversely. There is a heterogeneous mass within the pancreatic head which measures 3.0 x 2.8 x 5.0 cm on image 141 of series 3. The largest dimension is measured in a craniocaudal manner. The superior and medial margins of this mass abuts the confluence of the superior mesenteric and portal veins and results in mild mass effect with partial effacement of the superior mesenteric vein on image 135 series 3. The celiac trunk and superior mesenteric artery are not involved by the mass. The right lateral margin of the mass abuts the first and second portions of the duodenum. There are a few prominent periportal lymph nodes measuring up to 9 mm which are indeterminate. 1.5 cm hypoechoic lesion of the interpolar right kidney is suggestive of probable cyst. No hydronephrosis or urolith. Prostamegaly with moderate urinary bladder wall thickening and partial distention. Moderate mixed plaque of the abdominal aorta without aneurysm. No bowel obstruction. There are a few nodular foci noted within the mid mesentery measuring up to approximately 9 mm. No bowel obstruction. Moderate fecal retention of the rectum with moderate rectal wall thickening and perirectal stranding. Normal appendix. Unremarkable soft tissues. Bones appear intact. No suspicious lytic or blastic osseous lesions. IMPRESSION: 1. Hypoattenuating mass of the pancreatic head measuring up to 5.0 cm suggestive of pancreatic adenocarcinoma results in pancreatic ductal dilation with mild dilation of the extrahepatic biliary tree. There is abutment of the portal superior mesenteric venous confluence with extrinsic mass effect and mild narrowing of the superior mesenteric vein. Additionally, there is abutment without encasement of the proximal duodenum. 2. Indeterminate prominent periportal lymph nodes with a few scattered subcentimeter nodules of the mid mesentery. Attention at follow-up recommended to exclude metastasis. 3. Distended gallbladder with cholelithiasis and equivocal gallbladder wall thickening. Layering stones are also noted within the extrahepatic biliary tree. Findings should be correlated clinically to exclude acute cholecystitis. 4. Constipation with suggested stercoral proctitis. 5. Prostamegaly with chronic bladder outlet obstruction. 6. Additional findings as above. ACT 112: Positive. There are findings on this exam that require communication between the performing entity and the patient following Patient Test Result Information Act ([place] Act 112) guidelines. The above report was generated using voice recognition software. It may contain grammatical, syntax or spelling errors. Electronically signed by: Javier Turner M.D. 05/11/2020 3:41 PM Dictated: 05/11/20 1522Transcribed: 05/11/20 1522
[2020-05-12] MEDS: INSULIN ASPART 100 UNITS/ML 3 ML PEN SC SCH ×4 (08:40→20:41)
[2020-05-12] MEDS ORDERED: INDOMETHACIN 50 MG SUPP PR SCH (08:45)
--- NOTE | 2020-05-12 08:50 | Gastrointestinal Consultation ---
Date of Consultation May 12, 2020 Assessment & Plan (1) Pancreatic mass: Pt is a 84 y/o male w underlying dementia, presented w weakness, decreased appetite and fecal incontinence. On eval noted to have elevated WBC, LFTs and CT scan showed 5cm pancreas head mass, resulting in biliary and pancreatic duct obstruction/dilation. + cholelithiasis w some gallbladder distension as well. - Pt's POA (daughter Allison - [phone]) contacted. Discussed indication for ERCP w stent placements for obstruction due to pancreas mass. Procedure risks vs benefits reviewed. She is agreeable to proceed and understand she will be contacted to provide telephone consent by Dr. Cary Simons who will be doing the procedure. Pls keep pt NPO. Supervising Physician Co-Signing Physician Notes I saw and evaluated the patient. He presents with significant elevation of his liver associated enzymes in addition to 5 cm of mass in the pancreatic head. Of concern is his white count which is over 15,000 and a history of confusion last evening. Patient is able to give details today and notes that he has had some abdominal discomfort that has been ongoing for several days. Physical examination Elderly male, mild distress Mild abdominal tenderness exam Impression: Patient presents with evidence of a mass on imaging study with upstream dilation of the pancreatic duct and common bile duct. Given the white count I wonder if the patient could have developed an infection and would suggest that we proceed with further evaluation today to include upper endoscopy endoscopic ultrasound and ERCP for biliary decompression. We have discussed the risks of the procedures to include bleeding, infection, perforation, pancreatitis, failed biliary cannulation and cardiovascular complications History of Present Illness Reason for Consultation: Pancreas mass Requesting Physician: Dr. Talisha Sage Attending Physician: Dr. Cary Simons History of Present Illness Pt is a 84 y/o [facility] resident ([facility]) w hx of DM II, HTN, dementia, who presented w symptoms of weakness and decreased appetite, fecal incontinence. He cannot provide history, chart reviewed and I also spoke w his POA (daughter Allison). On eval, his labs are notable for leukocytosis and elevated LFTs: Tbili 1.3, AST 88, ALT 277, alk emigdio 390. CT abd/pelvis showed large pancreatic head mass of 5cm suggestive of pancreas adenocarcinoma causing pancreatic ductal & extrahepatic biliary ductal dilation, lymphadenopathy ? metastasis, also signs of cholelithiasis w distension of gallbladder. GI is consulted to provide ERCP w stent placement for palliative measures. Allergies Allergy/AdvReac Type Severity Reaction Status Date / Time No Known Allergies Allergy Unverified 05/11/20 13:53 Home Medications Medication Instructions Recorded Confirmed Type acarbose 50 mg PO TIDM 12/17/18 05/11/20 History cholecalciferol (vitamin D3) 1,000 unit PO DAILY 12/17/18 05/11/20 History [Vitamin D3] insulin glargine [Lantus Solostar 20 - 25 unit SUBCUT AMPM 12/17/18 05/11/20 History U-100 Insulin] lisinopril [Zestril] 2.5 mg PO DAILY 12/17/18 05/11/20 History multivitamin 1 tab PO DAILY 12/17/18 05/11/20 History simvastatin [Zocor] 20 mg PO PM 12/17/18 05/11/20 History diclofenac sodium [Voltaren] 2 g TOPICAL TID 05/11/20 05/11/20 History insulin lispro 50 unit SUBCUT DAILY 05/11/20 05/11/20 History metformin 1,000 mg PO BIDM 05/11/20 05/11/20 History Patient History Medical History Complicated UTI (urinary tract infection) Constipation Dementia Diabetes HTN (hypertension) Pancreatic mass T wave inversion in EKG Surgical History No pertinent past surgical history Family History Other Heart disease Social History Smoking Status: Former smoker Hx Alcohol Use: No Hx Substance Use: No Beliefs That Will Affect Care: None Current Living Situation: [facility] Feels Safe at Home: Yes Assistive Devices: Walker Review of Systems Review of Systems: Unobtainable due to cognitive status Physical Exam Constitutional: WD/WN, vitals as above well groomed, cooperative and comfortable Eyes: PERRL, conjunctivae normal, anicteric sclerae ENMT: external ear and nose normal, oropharynx normal Respiratory: normal respiratory effort, lungs clear to auscultation Cardiovascular: RRR, no murmur, no edema Gastrointestinal (Abdomen): normal bowel sounds, soft, nontender, no hepatosplenomegaly Skin: no rashes, warm and dry no jaundice Psychiatric: Oriented to self only Lymphatic: no lymphedema Results & Data ([facility]) Vital Signs (Past 12 Hours) Vital Signs Temp Pulse Pulse Resp BP BP Pulse Ox 05/12/20 07:15 95 H 05/12/20 07:14 36.9 C 99 H 16 172/82 H 93 05/12/20 03:13 36.8 C 97 H 18 126/74 93 05/12/20 00:22 94 H 05/11/20 23:07 37.0 C 89 18 128/76 92 05/11/20 21:27 97 H 05/11/20 21:14 36.8 C 99 H 16 167/87 H 95
[2020-05-12] MEDS ORDERED: ATROPINE SULFATE 0.1 MG/ML 10ML SYR IV PRN (11:03)
[2020-05-12] MEDS ORDERED: ePHEDrine sulfate 50 MG/ML AMP IV PRN (11:03)
[2020-05-12] MEDS ORDERED: fentaNYL citrate 100 MCG/2 ML VIAL IV PRN (11:03)
[2020-05-12] MEDS ORDERED: ONDANSETRON INJ 2 MG/ML 2 ML VIAL IV PRN (11:03)
[2020-05-12] MEDS ORDERED: LIDOCAINE HCL 2% 2 ML VIAL/AMP(20MG/ML) INFIL ONE (11:14)
[2020-05-12] MEDS ORDERED: PROPOFOL IV EMULSION 10 MG/ML 20 ML VIAL IV ONE ×5 (11:14→12:10)
--- NOTE | 2020-05-12 11:21 | GI REPORT ---
Patient Name: Alejandro Woods Procedure Date: 05/12/2020 11:10 AM Date of : 1935 Admit Type: Inpatient Age: 84 Gender: Male Attending MD: Cary Simons DO Procedure: Upper GI endoscopy Providers: Cary Simons DO Referring MD: Talisha Sage Indications: Epigastric abdominal pain Medicines: Monitored Anesthesia Care Complications: No immediate complications. Estimated blood loss: Minimal. Estimated Blood Loss: Estimated blood loss was minimal. Procedure: Pre-Anesthesia Assessment: - Prior to the procedure, a History and Physical was performed, and patient medications, allergies and sensitivities were reviewed. The patient's tolerance of previous anesthesia was reviewed. - The risks and benefits of the procedure and the sedation options and risks were discussed with the patient. All questions were answered and informed consent was obtained. - Patient identification and proposed procedure were verified prior to the procedure by the physician, the nurse and the unit controller. The procedure was verified in the procedure room. - Pre-procedure physical examination revealed no contraindications to sedation. - ASA Grade Assessment: IV - A patient with severe systemic disease that is a constant threat to life. - After reviewing the risks and benefits, the patient was deemed in satisfactory condition to undergo the procedure. - The anesthesia plan was to use monitored anesthesia care (MAC). - Immediately prior to administration of medications, the patient was re-assessed for adequacy to receive sedatives. - The heart rate, respiratory rate, oxygen saturations, blood pressure, adequacy of pulmonary ventilation, and response to care were monitored throughout the procedure. - The physical status of the patient was re-assessed after the procedure. After obtaining informed consent, the endoscope was passed under direct vision. Throughout the procedure, the patient's blood pressure, pulse, and oxygen saturations were monitored continuously. The Endoscope was introduced through the mouth, and advanced to the third part of duodenum. The upper GI endoscopy was accomplished without difficulty. The patient tolerated the procedure well. Findings: The examined esophagus was normal. A small hiatal hernia was found. The proximal extent of the gastric folds (end of tubular esophagus) was 39 cm from the incisors. The hiatal narrowing was 41 cm from the incisors. The Z-line was 39 cm from the incisors. Diffuse minimal inflammation characterized by erythema and granularity was found in the entire examined stomach. The examined duodenum was normal. Impression: - Normal esophagus. - Small hiatal hernia. - Gastritis. - Normal examined duodenum. - No specimens collected. Recommendation: - Perform an upper endoscopic ultrasound (UEUS) today. Cary Simons D.O. Cary Simons, 05/12/2020 11:20:47 AM This report has been signed electronically. Note Initiated On: 05/12/2020 11:10 AM Number of Addenda: 0 I attest to the content of the Intraoperative Record and orders documented therein, exceptions below {[id number]}
[2020-05-12] MEDS ORDERED: PHENYLEPHRINE 100MCG/ML 5ML SYR ONE (12:10)
[2020-05-12] MEDS ORDERED: ONDANSETRON INJ 2 MG/ML 2 ML VIAL ONE (12:10)
[2020-05-12] MEDS ORDERED: IOVERSOL 50ml IV ONE (12:20)
--- NOTE | 2020-05-12 12:31 | Post Operative Brief Note ---
Immediate Post Op Note v1 Date of Surgery May 12, 2020 Pre & Post Diagnosis Operation Date: 05/12/20 08:35 Pre-Op Diagnosis: Pancreatic Mass, Transaminitis Post-Op Diagnosis: Pancreatic Mass, Transaminitis I identified the patient and participated in the time-out.: Yes Procedure Operation Date: 05/12/20 08:35 Actual Procedures p Esophagogastroduodenoscopy, Endoscopic Ultrasonography Upper(Not Applicable) - Cary Simons DO s Endoscopic Retrograde Cholangiopancreatography and Bile Duct Stent Gallo cement(Not Applicable) - Cary Simons DO Surgeon Cary Simons, Sales Promotion Director none Estimated Blood Loss 0 Findings Consistent with Post-Op Diagnosis
--- NOTE | 2020-05-12 12:32 | Communication Note ---
Date of Service: May 12, 2020 The patient underwent upper endoscopy, endoscopic ultrasound and ERCP this afternoon. Findings Mild gastritis Pancreatic head mass, fine-needle aspiration performed Multiple cystic lesions throughout the pancreas suggestive of IPMN's Covered metal biliary stent placed Recommendations Clear liquid diet today Advance diet as tolerated on Friday Antibiotic coverage for a total of 7 days Consider medical oncology referral Avoid antiplatelet agents and anticoagulate chin for 5 days Please call with any questions or concerns
[2020-05-12] MEDS ORDERED: LABETALOL HCL IV 5 MG/ML 20ML IV PRN (12:35)
[2020-05-12] MEDS ORDERED: hydrALAZINE HCL 20 MG/ML VIAL IV ONE (12:36)
[2020-05-12] MEDS ORDERED: LABETALOL HCL IV 5 MG/ML 20ML IV ONE (12:36)
--- NOTE | 2020-05-12 12:47 | GI REPORT ---
Patient Name: Alejandro Woods Procedure Date: 05/12/2020 11:20 AM Date of : 1935 Admit Type: Inpatient Age: 84 Gender: Male Attending MD: Cary Simons DO Procedure: Upper EUS Providers: Cary Simons DO Referring MD: Talisha Sage Indications: Suspected mass in pancreas on CT scan, Elevated liver enzymes Medicines: Monitored Anesthesia Care Complications: No immediate complications. Estimated blood loss: Minimal. Estimated Blood Loss: Estimated blood loss was minimal. Procedure: Pre-Anesthesia Assessment: - Prior to the procedure, a History and Physical was performed, and patient medications, allergies and sensitivities were reviewed. The patient's tolerance of previous anesthesia was reviewed. - The risks and benefits of the procedure and the sedation options and risks were discussed with the patient. All questions were answered and informed consent was obtained. - Patient identification and proposed procedure were verified prior to the procedure by the physician, the nurse and the ruffling machine operator. The procedure was verified in the procedure room. - Pre-procedure physical examination revealed no contraindications to sedation. - ASA Grade Assessment: III - A patient with severe systemic disease. - After reviewing the risks and benefits, the patient was deemed in satisfactory condition to undergo the procedure. - The anesthesia plan was to use monitored anesthesia care (MAC). - Immediately prior to administration of medications, the patient was re-assessed for adequacy to receive sedatives. - The heart rate, respiratory rate, oxygen saturations, blood pressure, adequacy of pulmonary ventilation, and response to care were monitored throughout the procedure. - The physical status of the patient was re-assessed after the procedure. After obtaining informed consent, the endoscope was passed under direct vision. Throughout the procedure, the patient's blood pressure, pulse, and oxygen saturations were monitored continuously. The scope was introduced through the mouth, and advanced to the second part of duodenum. The upper EUS was accomplished without difficulty. The patient tolerated the procedure well. Findings: ENDOSONOGRAPHIC FINDING: : There was no sign of significant endosonographic abnormality in the ampulla. No masses were identified. There was no sign of significant endosonographic abnormality in the visualized portion of the liver. No masses were identified. No lymphadenopathy seen. Extensive hyperechoic material consistent with sludge was visualized endosonographically in the gallbladder. There was dilation in the common bile duct which measured up to 11 mm. Multiple stones were visualized endosonographically in the common bile duct. The stones measured up to 5 mm in greatest dimension. The stones were round. They were hyperechoic. An irregular mass was identified in the pancreatic head. The mass was hypoechoic. The mass measured 29 mm by 29 mm in maximal cross-sectional diameter. The endosonographic borders were poorly-defined. There was sonographic evidence suggesting invasion into the portal vein (manifested by abutment). An intact interface was seen between the mass and the superior mesenteric artery and celiac trunk suggesting a lack of invasion. The remainder of the pancreas was examined. The endosonographic appearance of parenchyma and the upstream pancreatic duct indicated duct dilation, a maximum duct diameter of 5 mm and parenchymal atrophy. Fine needle biopsy was performed. Color Doppler imaging was utilized prior to needle puncture to confirm a lack of significant vascular structures within the needle path. Five passes were made with the 25 gauge ultrasound core biopsy needle using a transduodenal approach. A visible core of tissue was obtained. A preliminary cytologic examination was performed. Final cytology results are pending. Estimated blood loss was minimal. Hypoechoic, multicystic and septated lesions suggestive of multiple cysts were identified in the pancreatic body. The largest lesion measured 27 mm by 20 mm in maximal cross-sectional diameter. Impression: - There was no sign of significant pathology in the ampulla. - There was no evidence of significant pathology in the visualized portion of the liver. - Hyperechoic material consistent with sludge was visualized endosonographically in the gallbladder. - There was dilation in the common bile duct which measured up to 11 mm. - Multiple stones were visualized endosonographically in the common bile duct. - A mass was identified in the pancreatic head. This was staged T3 N0 Mx by endosonographic criteria. The staging applies if malignancy is confirmed. Fine needle biopsy performed. - Multiple cystic lesions were seen in the pancreatic body. Tissue has not been obtained. 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 Recommendation: - Perform an ERCP today. - Await cytology results. Cary Simons D.O. Cary Simons DO 05/12/2020 12:46:48 PM This report has been signed electronically. Note Initiated On: 05/12/2020 11:20 AM Number of Addenda: 0 I attest to the content of the Intraoperative Record and orders documented therein, exceptions below {[id number]}
--- NOTE | 2020-05-12 13:20 | GI REPORT ---
Patient Name: Alejandro Woods Procedure Date: 05/12/2020 11:42 AM Date of : 1935 Admit Type: Inpatient Age: 84 Gender: Male Attending MD: Cary Simons DO Procedure: ERCP Providers: Cary Simons DO Referring MD: Talisha Sage Indications: Jaundice, Elevated liver enzymes, Tumor of the head of pancreas Medicines: Monitored Anesthesia Care Complications: No immediate complications. Estimated blood loss: Minimal. Estimated Blood Loss: Estimated blood loss was minimal. Procedure: Pre-Anesthesia Assessment: - Prior to the procedure, a History and Physical was performed, and patient medications, allergies and sensitivities were reviewed. The patient's tolerance of previous anesthesia was reviewed. - The risks and benefits of the procedure and the sedation options and risks were discussed with the patient. All questions were answered and informed consent was obtained. - Patient identification and proposed procedure were verified prior to the procedure by the physician, the nurse and the signal repairer. The procedure was verified in the procedure room. - Pre-procedure physical examination revealed no contraindications to sedation. - ASA Grade Assessment: III - A patient with severe systemic disease. - After reviewing the risks and benefits, the patient was deemed in satisfactory condition to undergo the procedure. - The anesthesia plan was to use monitored anesthesia care (MAC). - Immediately prior to administration of medications, the patient was re-assessed for adequacy to receive sedatives. - The heart rate, respiratory rate, oxygen saturations, blood pressure, adequacy of pulmonary ventilation, and response to care were monitored throughout the procedure. - The physical status of the patient was re-assessed after the procedure. After obtaining informed consent, the scope was passed under direct vision. Throughout the procedure, the patient's blood pressure, pulse, and oxygen saturations were monitored continuously. The Scope was introduced through the mouth, and advanced to the duodenum and used to inject contrast into the bile duct. The ERCP was accomplished without difficulty. The patient tolerated the procedure well. Findings: The steam plant records clerk film was normal. The esophagus was successfully intubated under direct vision without detailed examination of the pharynx, larynx, and associated structures, and upper GI tract. The upper GI tract was grossly normal. The major papilla was normal. The bile duct was deeply cannulated with the short-nosed traction sphincterotome and guidewire. Contrast was injected. I personally interpreted the bile duct images. Contrast extended to the hepatic ducts. The lower third of the main bile duct contained a single segmental stenosis 30 mm in length. The middle third of the main bile duct contained filling defect(s) thought to be a stone and sludge. The middle third of the main bile duct and upper third of the main bile duct were diffusely dilated, with a mass causing an obstruction. The largest diameter was 12 mm. Biliary sphincterotomy was made with a monofilament Fusion OMNI sphincterotome using ERBE electrocautery. There was no post-sphincterotomy bleeding. To discover objects, the biliary tree was swept with a 12 mm balloon starting at the bifurcation. Many stones were removed. No stones remained. One 10 Fr by 8 cm covered metal stent ([place] Viabil) was placed 8 cm into the common bile duct. Bile flowed through the stent. The stent was in good position. The total fluoroscopy exposure time was 1 minute and 9 seconds. The endoscope was withdrawn from the patient. Indomethacin 100 mg was given via suppository to decrease the risk of post-ERCP pancreatitis (PEP). Impression: - The major papilla appeared normal. - A filling defect consistent with a stone and sludge was seen on the cholangiogram. - A single segmental biliary stricture was found in the lower third of the main bile duct. The stricture was malignant appearing. - The upper third of the main bile duct and middle third of the main bile duct were dilated, with a mass causing an obstruction. - Choledocholithiasis was found. Complete removal was accomplished by biliary sphincterotomy and balloon extraction. - A biliary sphincterotomy was performed. - The biliary tree was swept. - One covered metal stent was placed into the common bile duct. - Indomethacin given to decrease risk of post-ERCP pancreatitis. Recommendation: - Avoid aspirin and nonsteroidal anti-inflammatory medicines for 5 days. - Clear liquid diet today. - Use broad spectrum antibiotics for 7 days. - Await cytology results. - Observe patient's clinical course following today's ERCP with therapeutic intervention. - Refer to an oncologist. Cary Simons D.O. Cary Simons DO 05/12/2020 1:19:47 PM This report has been signed electronically. Note Initiated On: 05/12/2020 11:42 AM Number of Addenda: 0 I attest to the content of the Intraoperative Record and orders documented therein, exceptions below {[id number]}
--- NOTE | 2020-05-12 13:23 | Anesthesiology Progress Note ---
Date of Service May 12, 2020 Anesthesia Post Procedure Vital Signs Vital Signs: Temp Pulse Pulse Pulse Resp BP BP 05/12/20 13:20 36.4 C L 87 16 120/69 05/12/20 13:00 84 16 114/66 05/12/20 12:50 36.4 C L 78 16 176/99 H 05/12/20 12:40 77 16 182/99 H 05/12/20 12:30 88 20 178/104 H 05/12/20 12:21 36.1 C L 91 H 20 174/104 H 05/12/20 10:22 37.4 C 94 H 16 130/83 05/12/20 07:15 95 H 05/12/20 07:14 36.9 C 99 H 16 172/82 H 05/12/20 03:13 36.8 C 97 H 18 126/74 05/12/20 00:22 94 H 05/11/20 23:07 37.0 C 89 18 128/76 05/11/20 21:27 97 H 05/11/20 21:14 36.8 C 99 H 16 05/11/20 20:01 90 136/77 05/11/20 20:00 94 H 05/11/20 19:31 92 H 15 159/77 H 05/11/20 19:30 91 H 17 05/11/20 19:00 89 15 05/11/20 18:34 100 H 18 05/11/20 18:31 90 17 130/77 05/11/20 18:30 88 22 05/11/20 18:01 97 H 16 113/58 L 05/11/20 18:00 89 15 05/11/20 17:31 93 H 141/82 H 05/11/20 17:30 92 H 05/11/20 17:02 97 H 15 05/11/20 17:01 96 H 19 168/109 H 05/11/20 17:00 96 H 14 05/11/20 16:32 91 H 17 05/11/20 16:31 91 H 14 170/101 H 05/11/20 16:30 93 H 10 L 05/11/20 16:01 88 15 154/87 H 05/11/20 16:00 92 H 15 05/11/20 15:55 93 H 22 128/70 05/11/20 15:44 88 16 05/11/20 15:04 93 H 16 05/11/20 14:20 90 16 BP Pulse Ox 05/12/20 13:20 95 05/12/20 13:00 95 05/12/20 12:50 98 05/12/20 12:40 100 05/12/20 12:30 100 05/12/20 12:21 96 05/12/20 10:22 94 05/12/20 07:15 05/12/20 07:14 93 05/12/20 03:13 93 05/12/20 00:22 05/11/20 23:07 92 05/11/20 21:27 05/11/20 21:14 167/87 H 95 05/11/20 20:01 98 05/11/20 20:00 98 05/11/20 19:31 05/11/20 19:30 05/11/20 19:00 05/11/20 18:34 133/77 96 05/11/20 18:31 05/11/20 18:30 05/11/20 18:01 05/11/20 18:00 05/11/20 17:31 97 05/11/20 17:30 96 05/11/20 17:02 96 05/11/20 17:01 95 05/11/20 17:00 96 05/11/20 16:32 98 05/11/20 16:31 98 05/11/20 16:30 97 05/11/20 16:01 99 05/11/20 16:00 99 05/11/20 15:55 100 05/11/20 15:44 100 05/11/20 15:04 133/80 95 05/11/20 14:20 129/76 95 Transfer of Care Handoff Completed per policy Notes Mental Status: alert / awake / arousable and participated in evaluation Nausea / Vomiting: adequately controlled Pain: adequately controlled Airway Patency, RR, SpO2: stable & adequate BP & HR: stable & adequate Hydration State: stable & adequate Anesthetic Complications: no major complications apparent and Pt Satisfied with anesthetic care
--- NOTE | 2020-05-12 13:25 | Fluoroscopy Report ---
[place] ERCP biliary ductal CLINICAL HISTORY: ERCP IN OR COMPARISON STUDY: CT of the abdomen and pelvis November 08, 2020. FLUOROSCOPY TIME: 1 minute and 9 seconds. FLUOROSCOPIC IMAGES: 8 FINDINGS: Fluoroscopy was provided during ERCP. Images demonstrate cannulation of the common bile nayeli t. Multiple irregular filling defects within the proximal to mid common bile duct were noted with dis crete caliber change at the level of the mid common bile duct likely due to extrinsic compression by the pancreatic mass shown on CT. Suspected stent is shown on the final image. IMPRESSION: Fluoroscopy provided during ERCP, as described above. ACT 112: Negative or not required by law. Electronically signed by: Adan Sharp M.D. 05/12/2020 1:24 PM
--- NOTE | 2020-05-12 19:37 | Hospitalist Progress Note ---
Date of Service May 12, 2020 Assessment & Plan (1) Pancreatic mass: s/p ERCP with pancreatic stent and brush biopsy today appreciate input from GI clear diet to today , will advance to soft diet tomorrow as tolerated Abx for 5 days , no aspirin or anticoagulation presentation suggestive of pancreatic adeno ca hx of significant wt loss , poor appetite progressive weakness and deconditioning Family not interested in pursuing pursue invasive measures such as surgery (2) Transaminitis: This is an 84-year-old male who resides at [facility] with PMH of type 2 diabetes, hypertension, dementia and other medical problems listed below who presents with generalized weakness and decreased appetite for the past few days and was found to have a pancreatic mass as well as a UTI. -Leukocytosis of 17, platelet count of 420, T bili of 1.3, AST of 143, ALT of 390 and alk phos of 496 -CT abdomen pelvis with evidence of pancreatic head mass measuring up to 5.0 cm suggestive of pancreatic adenocarcinoma resulting in pancreatic ductal dilation with mild dilation of the extrahepatic biliary tree. Also with distended gallbladder with cholelithiasis s/p ERCP discussion as above LFT's improved (3) Complicated UTI (urinary tract infection): Abnormal UA. Urine culture and blood cultures pending. Continue empiric Zosyn -Prostamegaly with chronic bladder outlet obstruction on CT abd/pelvis -Bladder scan PRN will adjust ABx once culture report available (4) Diabetes: Hold home agents -SSI while in-patient -BSG AC HS (5) HTN (hypertension): resumed out pt meds (6) Constipation: Constipation with suggested stercoral proctitis on CT abd/pelvis -Miralax DVT Ppx:sub q heparin Code status: DNR PCP: Prudencio Dispo: return to [facility] in next 1-2 days Daughter Allison updated over phone Admission and Anticipated Discharge Date Admission Date: May 11, 2020 Subjective Follow up visit for pancreatic mass : seen at bedside , very pleasant baseline dementia says he " feels fine " does not recall having a procedure earlier today tolerated clear diet no abdominal pain , no nausea or vomiting no fever or cough vitals stable Review of Systems Review of Systems: Unobtainable due to cognitive status (dementia ) Physical Exam Constitutional: WD/WN, vitals as above + ill appearing and + thin Eyes: + anicteric sclerae ENMT: external ear and nose normal, oropharynx normal Neck: trachea midline, no thyromegaly Respiratory: normal respiratory effort, lungs clear to auscultation Cardiovascular: RRR, no murmur, no edema Gastrointestinal (Abdomen): Percussion/Palpation: abdomen soft Skin: no rashes, warm and dry Neurologic: PERRL, EOMI, accommodation nl, no face palsy, no dysarthria moves all extremities, awake and + confused (baseline dementia ); no focal motor deficits Psychiatric: Orientation: alert (baseline dementia ), oriented to person and cooperative; + not oriented to place and + not oriented to time Results & Data Results & Data ([facility]) Vital Signs (Past 12 Hours) Vital Signs Temp Pulse Pulse Pulse Resp BP BP 05/12/20 19:00 36.4 C L 107 H 20 145/87 H 05/12/20 18:57 90 05/12/20 16:10 36.7 C 95 H 20 160/89 H 05/12/20 15:00 36.7 C 96 H 18 169/90 H 05/12/20 14:26 36.3 C L 92 H 15 169/92 H 05/12/20 13:56 36.6 C 90 16 157/76 H 05/12/20 13:20 36.4 C L 87 16 120/69 05/12/20 13:00 84 16 114/66 05/12/20 12:50 36.4 C L 78 16 176/99 H 05/12/20 12:40 77 16 182/99 H 05/12/20 12:30 88 20 178/104 H 05/12/20 12:21 36.1 C L 91 H 20 174/104 H 05/12/20 10:22 37.4 C 94 H 16 130/83 Pulse Ox 05/12/20 19:00 93 05/12/20 18:57 05/12/20 16:10 96 05/12/20 15:00 96 05/12/20 14:26 94 05/12/20 13:56 91 05/12/20 13:20 95 05/12/20 13:00 95 05/12/20 12:50 98 05/12/20 12:40 100 05/12/20 12:30 100 05/12/20 12:21 96 05/12/20 10:22 94
[2020-05-12] MEDS: HEPARIN SOD 5,000 UNIT/0.5 ML VIAL SQ SCH (22:28)
[2020-05-13] MEDS: PIPERACILLIN/TAZOBACTAM 3.375 GM in DEXTROSE 5% 100 ML IV SCH ×3 (06:02→21:56)
[2020-05-13] MEDS: HEPARIN SOD 5,000 UNIT/0.5 ML VIAL SQ SCH (06:03)
[2020-05-13 06:58] LABS: Basophils # (auto) 0.02 K/uL (0-0.2); Basophils % (auto) 0.2 %; Eosinophils # (auto) 0.11 K/uL (0-0.5); Eosinophils % (auto) 0.9 %; Hematocrit (blood only) 36.2 % (42-52); Hemoglobin 12.3 g/dL (14.0-18.0); Immature Granulocytes # (auto) 0.02 K/uL (0.00-0.02); Immature Granulocytes % (auto) 0.2 %; Lymphocytes # (auto) 1.32 K/uL (1.2-3.4); Lymphocytes % (auto) 10.8 %; Mean Corpuscular Hemoglobin 30.9 pg (25-34); Mean Platelet Volume 9.4 fL (7.4-10.4); Monocytes # (auto) 0.99 K/uL (0.11-0.59); Monocytes % (auto) 8.1 %; Neutrophils # (auto) 9.76 K/uL (1.4-6.5); Neutrophils % (auto) 79.8 %; Platelet Count 419 K/uL (130-400); RDW Coefficient of Variation 13.8 % (11.5-14.5); RDW Standard Deviation 45.5 fL (36.4-46.3); Red Blood Count 3.98 M/uL (4.7-6.1); White Blood Count 12.22 K/uL (4.8-10.8)
[2020-05-13 07:43] LABS: Albumin Globulin Ratio 0.6 (0.9-2); Albumin Level 2.8 gm/dl (3.4-5.0); Bilirubin,Total 1.1 mg/dl (0.2-1); Calcium 8.6 mg/dl (8.5-10.1); Creatinine Clr Calc Pharmacy 49.9 ml/min; Est GFR (African American) 73.3; Est GFR (Non-African American) 63.2; Globulin 4.4 gm/dl (2.5-4.0); Potassium 4.3 mmol/L (3.5-5.1); Total Protein 7.2 gm/dl (6.4-8.2)
[2020-05-13] MEDS: lisinopril 2.5 MG TAB PO SCH (08:13)
[2020-05-13] MEDS: CHOLECALCIFEROL 1,000 UNITS 25 MCG TAB PO SCH (08:13)
[2020-05-13] MEDS: INSULIN ASPART 100 UNITS/ML 3 ML PEN SC SCH ×4 (08:14→20:21)
[2020-05-13] MEDS: MULTIVITAMIN TAB PO SCH (08:14)
[2020-05-13] MEDS ORDERED: LACTATED RINGER'S 1,000 ML IV SCH (09:15)
--- NOTE | 2020-05-13 09:24 | Communication Note ---
Date of Service: May 13, 2020 AM Lab reviewed : LFT's has improved pt tolerated clears well this am , no abdominal pain , no nausea , vomiting ordered to advance diet to low fat /dental soft diet . urine retention noted : bladder scan > [address] abdomen /pelvis -showed prostatomegaly /possible chronic urinary retention , causing recurrent UTI ordered for Whitney catheter send urine sample from Whitney ( pt was unable to provide clean catch urine for culture ) given possible pancreatitis malignancy , progressive deconditioning and worsening of urinary retention anticipated pt will benefit with chronic Whitney catheter ordered IV fluid as pt appears clinically dehydrated repeat CBC and CMP in am EGD showed Gastritis -started on PO Protonix 40 mg BID for 4 weeks , followed by once daily PPI on Zosyn for possible complicated UTI ( bladder outlet obstruction due to BPH ) /cholecystitis /cholangitis /pancreatic ca s/p ERCP plan change to Oral/PO abx once urine culture available -total 7 days tx cancer marker CA-19-9( specific for pancreatic malignancy ) and biopsy of ERCP /pancreatic mass sample -pending pt has baseline dementia , oriented to person only unable to comprehend or make decision regarding treatment plan will d/w family if they wants to pursue outpatient oncology follow up if biopsy is proven to be malignancy . over all prognosis poor -palliative care consult would be appropriate plan to discharge back to [facility] living vs skilled rehab in 1- 2 days PT/OT eval pending . social service following for discharge planning Daughter Allison will be updated over phone . pt is DNR/DNI dvt prophylaxis : changed to SC Lovenox given high risk for malignancy related thrombosis
[2020-05-13] MEDS ORDERED: ENOXAPARIN INJ 40 MG/0.4 ML SYR SQ SCH (09:30)
[2020-05-13] MEDS: PANTOprazole 40 MG TAB PO SCH ×2 (10:26→20:04)
[2020-05-13] MEDS ORDERED: INSULIN GLARGINE SOLOSTAR 100 UNITS/ML 3 ML PEN SC SCH (12:30)
[2020-05-13] MEDS ORDERED: PHARMACY GLYCEMIC MGMT CONSULT PRN (12:37)
[2020-05-13] MEDS ORDERED: INSULIN GLARGINE SOLOSTAR 100 UNITS/ML 3 ML PEN SC ONE (13:30)
--- NOTE | 2020-05-13 13:39 | Pharmacy Report ---
Pharmacy Glycemic Short Note 2 - Date of Service May 13, 2020 - Glycemic Short BSG Results (Last 24 hours): 05/12/20 05/12/20 05/13/20 16:09 20:16 06:43 Glucose 211 H POC Glucose 198 H 200 H 05/13/20 05/13/20 05/13/20 07:50 11:35 11:37 Glucose POC Glucose 220 H 365 H* 393 H* OUTPATIENT ANTIDIABETIC REGIMEN: * Lantus 20 units qam, 25 units qpm * Lispro 5 units with meals plus sliding scale * metformin * A1c = 7.9% (05/11/20) ASSESSMENT: * Alejandro is a 84 yo male who presented with generalized weakness and decreased appetite for the past few days and was found to have a pancreatic mass and UTI. He is s/p ERCP with pancreatic stent and brush biopsy. * Severe hyperglycemia likely due to home regimen on hold (patient has received no basal insulin this admission - takes 45 units of basal per day at home) and advancement of diet. * Will load patient with 40 units of Lantus now and split into a BID regimen on 1/10 AM * Will base Novolog doses on an estimated total daily dose of 80 units PLAN FOR INPATIENT GLYCEMIC CONTROL: * Hold outpatient oral diabetes medications * Basal insulin * Lantus 40 units SQ x 1 now * Will start BID Lantus on 1/10 AM - doses to be determined based on fasting BSG * Bolus insulin * NovoLog per scale ACHS or Q6hrs while NPO * Goal Range: Low 110 mg/dL - High 140 mg/dL * Correction Factor: 20 mg/dL/unit * Nutritional / Prandial insulin per carb ratio of 1 unit per 7 grams CHO consumed PLAN FOR DISCHARGE: * tbd
--- NOTE | 2020-05-13 13:48 | Gastroenterology Progress Note ---
Date of Service May 13, 2020 Assessment & Plan (1) Pancreatic mass: Doing well at present, s/p ERCP with stone removal and Stent Placement for Pancreatic mass Continue to advance diet as tolerated Continue supportive care Will sign off from GI standpoint at this time. (2) Transaminitis: Admission and Anticipated Discharge Date Admission Date: May 11, 2020 Subjective Doing well per nursing staff. Had a BM this AM. Tolerating PO intake. Patient is awake and pleasant, but does not remember undergoing an ERCP with stone removal and stent placement yesterday. He reports no pain. Physical Exam Constitutional: no acute distress Respiratory: normal respiratory effort; no respiratory distress and no labored breathing Gastrointestinal (Abdomen): Inspection/Auscultation: abdomen normal to inspection and normal bowel sounds; abdomen not distended Percu ssion/Palpation: abdomen soft; abdomen nontender Psychiatric: Orientation: cooperative Results & Data Results & Data ([facility]) Vital Signs (Past 12 Hours) Vital Signs Temp Pulse Resp BP Pulse Ox 05/13/20 07:47 36.8 C 94 H 18 130/79 95 Laboratory Results 05/13/20 06:43 05/13/20 06:43 PG Care Time/CCT Total # of Minutes Spent Total Time Spent with Patient: Total time spent is greater than 50% in coord ination of care (as documented) at patient's floor/unit and/or counseling patient: Coding Level of Care Code 31848 Subseq Hosp Care Lvl 2 Diagnoses Pancreatic mass K86.89 Transaminitis R74.01
--- NOTE | 2020-05-13 15:17 | Hospitalist Progress Note ---
Date of Service May 13, 2020 Assessment & Plan (1) Pancreatic mass: s/p ERCP with pancreatic stent and brush biopsy on 05/12/20 appreciate input from GI diet advance to soft diet tolerated well Abx for 5 days , no aspirin or anticoagulation presentation suggestive of pancreatic adeno ca hx of significant wt loss , poor appetite progressive weakness and deconditioning Family not interested in pursuing pursue invasive measures such as surgery (2) Transaminitis: s/p ERCP discussion as above LFT's improved , pt denies of any GI symptoms (3) Complicated UTI (urinary tract infection): Abnormal UA. Urine culture and blood cultures pending. Continue empiric Zosyn -Prostamegaly with chronic bladder outlet obstruction on CT abd/pelvis -Whitney placed for urinary retention follow urine culture (4) Diabetes: bsg elevated pt requires 20-25 U Lantus BID with Novolog pharmacy consulted for glycemic managment (5) HTN (hypertension): BP stable on Lisinopril (6) Constipation: Constipation with suggested stercoral proctitis on CT abd/pelvis -Miralax DVT Ppx:sub q lovenox Code status: DNR PCP: Dr Elsy Flannery Dispo: return to [facility] assisted living possible tomorrow Daughter Allison updated over phone Admission and Anticipated Discharge Date Admission Date: May 11, 2020 Subjective Follow up visit for Pancreatic mass /dehydration : diet advanced to low fat /soft -did well , no nausea or abdominal pain had a bowel movement today pt seen sitting up on chair very pleasant denies of any discomfort afebrile with stable vitals no chest pain , SOB or VILLAVICENCIO Review of Systems Review of Systems: Unobtainable due to cognitive status (dementia ) Physical Exam Constitutional: WD/WN, vitals as above + ill appearing and + thin Eyes: + anicteric sclerae ENMT: external ear and nose normal, oropharynx normal Neck: trachea midline, no thyromegaly Respiratory: normal respiratory effort, lungs clear to auscultation Cardiovascular: RRR, no murmur, no edema Gastrointestinal (Abdomen): Percussion/Palpation: abdomen soft Skin: no rashes, warm and dry Neurologic: PERRL, EOMI, accommodation nl, no face palsy, no dysarthria moves all extremities, awake and + confused (baseline dementia ); no focal motor deficits Psychiatric: Orientation: alert (baseline dementia ), oriented to person and cooperative; + not oriented to place and + not oriented to time Results & Data Results & Data ([facility]) Vital Signs (Past 12 Hours) Vital Signs Temp Pulse Resp BP Pulse Ox 05/13/20 07:47 36.8 C 94 H 18 130/79 95
--- NOTE | 2020-05-13 15:48 | Communication Note ---
Date of Service: May 13, 2020 spoke with pt's Daughter Allison plan to dc pt to Assisted living tomorrow at [facility] with [facility] and [facility] PT pt will be discharged with indwelling Whitney catheter daughter will pick up and delivery driver at 2 pm will update social service Talisha Sage MD
[2020-05-13 21:59] LABS: Hematocrit (blood only) 33.6 % (42-52); Hemoglobin 11.6 g/dL (14.0-18.0)
[2020-05-14] MEDS: CARBOHYDRATES FOR HYPOGLYCEMIA PO PRN ×2 (00:05→03:51)
[2020-05-14] MEDS: INSULIN ASPART 100 UNITS/ML 3 ML PEN SC SCH ×6 (00:48→20:48)
[2020-05-14] MEDS: PIPERACILLIN/TAZOBACTAM 3.375 GM in DEXTROSE 5% 100 ML IV SCH ×2 (05:43→13:58)
[2020-05-14 06:58] LABS: Hemoglobin 10.5 g/dL (14.0-18.0); Mean Corpuscular Hemoglobin 31.3 pg (25-34); Mean Corpuscular Volume 89.3 fL (80-100); Mean Platelet Volume 9.5 fL (7.4-10.4); Platelet Count 412 K/uL (130-400); RDW Coefficient of Variation 13.5 % (11.5-14.5); RDW Standard Deviation 44.5 fL (36.4-46.3); Red Blood Count 3.36 M/uL (4.7-6.1); White Blood Count 10.55 K/uL (4.8-10.8)
[2020-05-14 07:29] LABS: Albumin Level 2.6 gm/dl (3.4-5.0); BUN Creatinine Ratio 15.4 (10-20); Calcium 8.2 mg/dl (8.5-10.1); Creatinine Clr Calc Pharmacy 53.4 ml/min; Est GFR (African American) 79.6; Est GFR (Non-African American) 68.7; Potassium 3.5 mmol/L (3.5-5.1)
[2020-05-14 07:32] LABS: Albumin Globulin Ratio 0.7 (0.9-2); Bilirubin,Total 0.7 mg/dl (0.2-1); Globulin 3.7 gm/dl (2.5-4.0); Total Protein 6.3 gm/dl (6.4-8.2)
[2020-05-14] MEDS: MULTIVITAMIN TAB PO SCH (09:27)
[2020-05-14] MEDS: PANTOprazole 40 MG TAB PO SCH ×2 (09:27→20:48)
[2020-05-14] MEDS: lisinopril 2.5 MG TAB PO SCH (09:27)
[2020-05-14] MEDS: CHOLECALCIFEROL 1,000 UNITS 25 MCG TAB PO SCH (09:27)
--- NOTE | 2020-05-14 09:49 | Communication Note ---
Date of Service: May 14, 2020 Indwelling Whitney catheter placed yesterday for urinary retention. Notified yesterday that patient started to have hematuria, blood clot in Whitney catheter A.m. labs reviewed, hemoglobin 1110 drop noted from Stable vital status. sQ Lovenox ,all antiplatelets, anticoagulation been discontinued Continues to have hematuria. We will hold discharge today. Repeat H&H in a.m., on broad-spectrum antibiotic of for probable UTI urine culture still pending Urology consult will be requested LFTs continues to improve, kidney function remains stable Repeat liver function test in a.m. Update patient's daughter over phone Talisha Sage MD
--- NOTE | 2020-05-14 10:15 | Communication Note ---
Date of Service: May 14, 2020 Daughter updated over phone, regarding hematuria, patient will need continued hospital stay. Updated that pancreatic cancer tumor marker CA 199 is elevated. Pathology for pancreatic mass results still pending. After discussion with daughter, she will contact patient's family physician for outpatient oncology follow-up for discussion of prognosis. Talisha Sage MD
--- NOTE | 2020-05-14 11:24 | Urology Consultation ---
Date of Consultation May 14, 2020 Assessment & Plan (1) Complicated UTI (urinary tract infection): (2) Gross hematuria: Gross hematuria in the setting of acute UTI/retention? with onset after catheter placement CT from 05/11 reviewed - no clearly identifiable pathology - by definition, he does not require any further w/u given the setting of UTI/catheter placement preceding onset of hematuria and rapid improvement after onset - supportive care only - flush catheter manually if clot obstruction -treat for UTI - tamsulosin now - plan for voiding trial in 24-48 hours - does not have to remain the hospital for the this time period unless other medical issues indicate a need for this - please call us if further issues arise History of Present Illness Attending Physician: Talisha Sage MD History of Present Illness 84-year-old gentleman admitted for unrelated reasons but recently discovered to have a UTI, urinary retentionhad a Medrano catheter placed and subsequently developed hematuria He reports that he has never previously experienced hematuria He does not believe he is previously required catheter - that said, he is not the greatest historian He thought that he was voiding adequately prior to admission Has not been on any BPH driven meds Unfortunately, he is currently admitted secondary to a pancreatic mass and obstructed duct Retention occurred after ERCP, stone extraction, and stent placement Allergies Allergy/AdvReac Type Severity Reaction Status Date / Time No Known Allergies Allergy Unverified 05/11/20 13:53 Home Medications Medication Instructions Recorded Confirmed Type acarbose 50 mg PO TIDM 12/17/18 05/11/20 History cholecalciferol (vitamin D3) 1,000 unit PO DAILY 12/17/18 05/11/20 History [Vitamin D3] insulin glargine [Lantus Solostar 20 - 25 unit SUBCUT AMPM 12/17/18 05/11/20 History U-100 Insulin] lisinopril [Zestril] 2.5 mg PO DAILY 12/17/18 05/11/20 History simvastatin [Zocor] 20 mg PO PM 12/17/18 05/11/20 History diclofenac sodium [Voltaren] 2 g TOPICAL TID 05/11/20 05/11/20 History insulin lispro 50 unit SUBCUT DAILY 05/11/20 05/11/20 History metformin 1,000 mg PO BIDM 01/07/21 01/07/21 History pantoprazole 40 mg PO BID 30 Days #60 tab 05/13/20 Rx Patient History Medical History Complicated UTI (urinary tract infection) Constipation Dementia Diabetes HTN (hypertension) Pancreatic mass T wave inversion in EKG Surgical History No pertinent past surgical history Family History Other Heart disease Social History Smoking Status: Former smoker Hx Alcohol Use: No Hx Substance Use: No Communication Ability: Unable Beliefs That Will Affect Care: None Current Living Situation: Residential Feels Safe at Home: Yes Assistive Devices: Walker Review of Systems Constitutional: no fever, no chills and no fatigue Eyes: no worsening vision Ear, Nose, Mouth, Throat: no facial pain and no pain with swallowing Respiratory: no cough and no dyspnea Cardiovascular: no chest pain and no palpitations Gastrointestinal: no abdominal pain, no nausea and no vomiting Genitourinary: + problem reported Musculoskeletal: no back pain Integumentary: no rash and no urticaria Neurologic: no gait abnormality and no unsteadiness Psychiatric: no behavioral changes and no depression Endocrine: no fatigue Physical Exam Constitutional: well developed and well nourished pleasant and appropriately interactive Neck: neck nontender Respiratory: normal respiratory effort; no respiratory distress and does not use accessory muscles Cardiovascular: Rate/Rhythm: regular rate Vessels: radial pulses present Extremities: no edema Gastrointestinal (Abdomen): Inspection/Auscultation: abdomen normal to inspection Percussion/Palpation: abdomen soft; abdomen nontender and no guarding Musculoskeletal: Head/Neck/Chest: normocephalic and head atraumatic Extremities: extremities normal to inspection Skin: no rashes and no lesions Trauma: no evidence of skin trauma Neurologic: awake; not obtunded Speech / Cognition: normal speech Motor /Sensory: no tremor Psychiatric: Orientation: alert (somewhat confused) Genitourinary: no CVA tenderness some dark blood in the medrano bag, the urine in the tubing is quite clear Lymphatic: no lymphadenopathy Results & Data ([facility]) Vital Signs (Past 12 Hours) Vital Signs Temp Pulse Resp BP Pulse Ox 05/14/20 07:33 36.8 C 80 18 147/74 H 92 PG Care Time/CCT Total # of Minutes Spent Total Time Spent with Patient: Total time spent is greater than 50% in coordination of care (as documented) at patient's floor/unit and/or counseling patient: Coding Level of Care Code 82972 Inpt Consult Level 4 Diagnoses Complicated UTI (urinary tract infection) N39.0 Gross hematuria R31.0
[2020-05-14] MEDS ORDERED: TAMSULOSIN HCL 0.4 MG CAP PO ONE (11:32)
--- NOTE | 2020-05-14 13:34 | Pharmacy Report ---
Pharmacy Glycemic Short Note 2 - Date of Service May 14, 2020 - Glycemic Short BSG Results (Last 24 hours): 05/13/20 05/13/20 05/13/20 13:53 13:55 16:28 Glucose POC Glucose 440 H* 488 H* 254 H 05/13/20 05/14/20 05/14/20 20:00 00:00 00:02 Glucose POC Glucose 94 47 L* 55 L* 05/14/20 05/14/20 05/14/20 00:25 03:46 04:09 Glucose POC Glucose 70 54 L* 94 05/14/20 05/14/20 05/14/20 06:24 07:29 11:41 Glucose 100 H POC Glucose 116 H 124 H OUTPATIENT ANTIDIABETIC REGIMEN: * Lantus 20 units qam, 25 units qpm * Lispro 5 units with meals plus sliding scale * metformin * A1c = 7.9% (05/11/20) ASSESSMENT: 05/14: * Alejandro received 88 units of insulin yesterday with variable glycemic control * 40 units basal, 48 units bolus * Patient had hypoglycemia overnight. Unsure if this was due to basal insulin dose (patient received less than her total home basal dose yesterday) or a combination of basal dose in addition to aggressive novolog dosing (37 units g iven with lunch and then another 7 units at dinner). * Will start basal dose per scale BID * Post prandial BSGs improved. Novolog CF/CR were loosened this morning to avoid further hypoglycemia. 05/13: * Alejandro is a 84 yo male who presented with generalized weakness and decreased appetite for the past few days and was found to have a pancreatic mass and UTI. He is s/p ERCP with pancreatic stent and brush biopsy. * Severe hyperglycemia likely due to home regimen on hold (patient has received no basal insulin this admission - takes 45 units of basal per day at home) and advancement of diet. * Will load patient with 40 units of Lantus now and split into a BID regimen on 1/10 AM * Will base Novolog doses on an estimated total daily dose of 80 units PLAN FOR INPATIENT GLYCEMIC CONTROL: * Hold outpatient oral diabetes medications * Basal insulin * Lantus per scale BID: * 15 units for BSG of 150 mg/dL or less * 20 units for BSG greater than 150 mg/dL (similar to home dose) * Bolus insulin * NovoLog per scale ACHS or Q6hrs while NPO * Goal Range: Low 110 mg/dL - High 140 mg/dL * Correction Factor: 30 mg/dL/unit * Nutritional / Prandial insulin per carb ratio of 1 unit per 9 grams CHO consumed PLAN FOR DISCHARGE: * A1c = 7.9% * May continue outpatient regimen of Lantus + Lispro + metformin on discharge - doses to be titrated by outpatient provider
[2020-05-14] MEDS: ADVANCED PROBIOTIC 1250 MG CAPSULE PO SCH (15:45)
[2020-05-14] MEDS ORDERED: INSULIN GLARGINE SOLOSTAR 100 UNITS/ML 3 ML PEN SC SCH (16:30)
[2020-05-14] MEDS: TAMSULOSIN HCL 0.4 MG CAP PO SCH (20:48)
[2020-05-14] MEDS: CIPROFLOXACIN 500 MG TAB PO SCH (20:48)
--- NOTE | 2020-05-14 21:51 | Hospitalist Progress Note ---
Date of Service May 14, 2020 Assessment & Plan (1) Pancreatic mass: s/p ERCP with pancreatic stent and brush biopsy on 05/12/20 appreciate input from GI CA 19-9 level elevated diet advance to soft diet tolerated well Abx for 5 days , no aspirin or anticoagulation presentation suggestive of pancreatic adeno ca hx of significant wt loss , poor appetite progressive weakness and deconditioning Family not interested in pursuing pursue invasive measures such as surgery (2) Transaminitis: s/p ERCP discussion as above LFT's improved , pt denies of any GI symptoms /tolerting diet (3) Complicated UTI (urinary tract infection): Abnormal UA. Urine culture and blood cultures pending. Continue empiric Zosyn -Prostatomegaly with chronic bladder outlet obstruction on CT abd/pelvis -Whitney placed for urinary retention -developed hematuria after Whitney catheter placement appreciate input from Urology , possible cause -complicated UTI /BPH , trauma from Whitney placement added Flomax recommends cont tx for UTI voiding trial in next 24-48 hrs (4) Diabetes: pharmacy consulted for glycemic management hypoglycemic episode noted this AM insulin dose adjusted by pharmacy (5) HTN (hypertension): BP stable on Lisinopril Admission and Anticipated Discharge Date Admission Date: May 11, 2020 Subjective Follow up visit for Pancreatic mass /dehydration /hematuria : intermittent hematuria noted in Whitney catheter pt sitting on chair , very pleasant tolerating diet , no abdominal pain or nausea no fever or chills baseline dementia denies of any urinary symptoms , no bladder discomfort Review of Systems Review of Systems: Unobtainable due to cognitive status (dementia ) Physical Exam Constitutional: WD/WN, vitals as above Eyes: + anicteric sclerae ENMT: external ear and nose normal, oropharynx normal Neck: trachea midline, no thyromegaly Respiratory: normal respiratory effort, lungs clear to auscultation Cardiovascular: RRR, no murmur, no edema Gastrointestinal (Abdomen): Percussion/Palpation: abdomen soft Musculoskeletal: no cyanosis or clubbing, extremities motor strength 5/5 Skin: no rashes, warm and dry Neurologic: PERRL, EOMI, accommodation nl, no face palsy, no dysarthria moves all extremities, awake and + confused (baseline dementia ); no focal motor deficits Psychiatric: Orientation: alert (baseline dementia ), oriented to person and cooperative; + not oriented to place and + not oriented to time
[2020-05-15 06:24] LABS: Hematocrit (blood only) 30.5 % (42-52); Hemoglobin 10.6 g/dL (14.0-18.0); Mean Corpuscular Hemoglobin 31.1 pg (25-34); Mean Corpuscular Hgb Conc 34.8 g/dL (32-36); Mean Corpuscular Volume 89.4 fL (80-100); Mean Platelet Volume 9.1 fL (7.4-10.4); Platelet Count 406 K/uL (130-400); RDW Coefficient of Variation 13.3 % (11.5-14.5); RDW Standard Deviation 43.5 fL (36.4-46.3); Red Blood Count 3.41 M/uL (4.7-6.1); White Blood Count 7.92 K/uL (4.8-10.8)
[2020-05-15] MEDS: ADVANCED PROBIOTIC 1250 MG CAPSULE PO SCH (08:03)
[2020-05-15] MEDS: MULTIVITAMIN TAB PO SCH (08:03)
[2020-05-15] MEDS: lisinopril 2.5 MG TAB PO SCH (08:03)
[2020-05-15] MEDS: CHOLECALCIFEROL 1,000 UNITS 25 MCG TAB PO SCH (08:03)
[2020-05-15] MEDS: CIPROFLOXACIN 500 MG TAB PO SCH ×2 (08:03→20:51)
[2020-05-15] MEDS: PANTOprazole 40 MG TAB PO SCH ×2 (08:03→20:51)
[2020-05-15] MEDS: INSULIN ASPART 100 UNITS/ML 3 ML PEN SC SCH ×4 (08:07→20:49)
--- NOTE | 2020-05-15 09:24 | Communication Note ---
Date of Service: May 15, 2020 Attempted to see pt x 2. In restroom. Will re-attempt at later date. Path pending LFTs improving. Patient not available during time of rounds. The patient did undergo EUS and ERCP late last week during which time we found what appears to be an unresectable pancreatic mass. Fine-needle aspiration results are still pending. It appears that his liver enzymes are improved with the stent that was placed. I would recommend that the patient see medical oncology as an outpatient. Please let us know if there are any additional questions or concerns during the remainder of the hospitalization.
--- NOTE | 2020-05-15 10:42 | Communication Note ---
Date of Service: May 15, 2020 Pancreatic mass Biopsy -malignant adenocarcinoma will update GI team daughter updated over phone Talisha Sage MD
[2020-05-15 13:56] LABS: Albumin Level 2.6 gm/dl (3.4-5.0); Bilirubin Direct 0.2 mg/dl (0-0.2); Bilirubin,Total 0.7 mg/dl (0.2-1); Total Protein 6.5 gm/dl (6.4-8.2)
--- NOTE | 2020-05-15 15:18 | Pharmacy Report ---
Pharmacy Glycemic Short Note 2 - Date of Service May 15, 2020 - Glycemic Short BSG Results (Last 24 hours): 05/14/20 05/14/20 05/15/20 16:30 20:22 07:37 POC Glucose 202 H 229 H 76 05/15/20 11:48 POC Glucose 147 H OUTPATIENT ANTIDIABETIC REGIMEN: * Lantus 20 units qam, 25 units qpm * Lispro 5 units with meals plus sliding scale * metformin * A1c = 7.9% (05/11/20) ASSESSMENT: 05/15: * Patient received total of 27 units of insulin yesterday, PO intake very poor * Fasting BSG 76 mg/dL - will scale back further on basal for today (decr ~50%) * Continue same CF/CR 05/14: * Alejandro received 88 units of insulin yesterday with variable glycemic control * 40 units basal, 48 units bolus * Patient had hypoglycemia overnight. Unsure if this was due to basal insulin dose (patient received less than her total home basal dose yesterday) or a combination of basal dose in addition to aggressive novolog dosing (37 units given with lunch and then another 7 units at dinner). * Will start basal dose per scale BID * Post prandial BSGs improved. Novolog CF/CR were loosened this morning to avoid further hypoglycemia. PLAN FOR INPATIENT GLYCEMIC CONTROL: * Hold outpatient oral diabetes medications * Basal insulin * Lantus 10-15 units HS * Bolus insulin * NovoLog per scale ACHS or Q6hrs while NPO * Goal Range: Low 110 mg/dL - High 140 mg/dL * Correction Factor: 30 mg/dL/unit * Nutritional / Prandial insulin per carb ratio of 1 unit per 9 grams CHO consumed PLAN FOR DISCHARGE: * A1c = 7.9% * May continue outpatient regimen of Lantus + Lispro + metformin on discharge - doses to be titrated by outpatient provider
[2020-05-15] MEDS: TAMSULOSIN HCL 0.4 MG CAP PO SCH (20:51)
[2020-05-15] MEDS ORDERED: INSULIN GLARGINE SOLOSTAR 100 UNITS/ML 3 ML PEN SC SCH (21:00)
--- NOTE | 2020-05-15 21:22 | Hospitalist Progress Note ---
Date of Service May 15, 2020 Assessment & Plan (1) Pancreatic mass: s/p ERCP with pancreatic stent and brush biopsy on 05/12/20 -pathology : pancreatic adenocarcinoma appreciate input from GI CA 19-9 level elevated diet advance to soft diet tolerated well Abx for 5 days-on PO cipro , no aspirin or anticoagulation hx of significant wt loss , poor appetite -pancreatic mass noted in CT abdomen progressive weakness and deconditioning Family not interested in pursuing pursue invasive measures such as surgery (2) Transaminitis: s/p ERCP discussion as above LFT's contiues to improved , pt denies of any GI symptoms /tolerting diet (3) Complicated UTI (urinary tract infection): Abnormal UA. Urine culture and blood cultures pending. Continue empiric Zosyn -Prostatomegaly with chronic bladder outlet obstruction on CT abd/pelvis -Medrano placed for urinary retention -developed hematuria after Medrano catheter placement appreciate input from Urology , possible cause -complicated UTI /BPH , trauma from Medrano placement added Flomax on PO cipro for UTI voiding trial in am -will dc medrano in am /bladder scan after voiding -if significant residual urine noted -will be discharged on chronic medrano catheter (4) Diabetes: insulin SSI appreciate pharmacy consult for glycemic managment (5) HTN (hypertension): BP stable on Lisinopril plan to discharge to [facility] tomorrow Admission and Anticipated Discharge Date Admission Date: May 11, 2020 Subjective Follow up visit for Pancreatic mass /dehydration /hematuria : very pleasant, baseline dementia , offers no complain no cough or fever , no abdominal pain or nausea Physical Exam Constitutional: WD/WN, vitals as above + thin Eyes: + anicteric sclerae ENMT: external ear and nose normal, oropharynx normal Neck: trachea midline, no thyromegaly Respiratory: normal respiratory effort, lungs clear to auscultation Cardiovascular: RRR, no murmur, no edema Gastrointestinal (Abdomen): Percussion/Palpation: abdomen soft Musculoskeletal: no cyanosis or clubbing, extremities motor strength 5/5 Skin: no rashes, warm and dry Neurologic: PERRL, EOMI, accommodation nl, no face palsy, no dysarthria moves all extremities, awake and + confused (baseline dementia ); no focal motor deficits Psychiatric: Orientation: alert (baseline dementia ), oriented to person and cooperative; + not oriented to place and + not oriented to time Results & Data Results & Data ([facility]) Vital Signs (Past 12 Hours) Vital Signs Temp Pulse Resp BP Pulse Ox 05/15/20 16:06 36.6 C 86 18 136/72 97
[2020-05-16 07:17] LABS: Albumin Level 2.6 gm/dl (3.4-5.0); Bilirubin Direct 0.2 mg/dl (0-0.2); Creatinine Clr Calc Pharmacy 61.9 ml/min; Est GFR (African American) 89.7; Est GFR (Non-African American) 77.4
[2020-05-16 07:20] LABS: Bilirubin,Total 0.6 mg/dl (0.2-1); Total Protein 6.7 gm/dl (6.4-8.2)
[2020-05-16] MEDS: CIPROFLOXACIN 500 MG TAB PO SCH (08:35)
[2020-05-16] MEDS: ADVANCED PROBIOTIC 1250 MG CAPSULE PO SCH ×2 (08:35→09:25)
[2020-05-16] MEDS: MULTIVITAMIN TAB PO SCH (08:36)
[2020-05-16] MEDS: CHOLECALCIFEROL 1,000 UNITS 25 MCG TAB PO SCH (08:36)
[2020-05-16] MEDS: lisinopril 2.5 MG TAB PO SCH (08:36)
[2020-05-16] MEDS: PANTOprazole 40 MG TAB PO SCH (08:36)
[2020-05-16] MEDS: INSULIN ASPART 100 UNITS/ML 3 ML PEN SC SCH ×2 (08:39→12:24)
--- NOTE | 2020-05-16 09:36 | Communication Note ---
Date of Service: May 16, 2020 The patient's pathology results did return this morning. It appears that he does indeed have a pancreatic adenocarcinoma. I did discuss it with the patient he did not seem to completely comprehend the diagnosis today. I made an effort to try and call the patient's and family that they can decide what they would like to do long-term as the patient's best next step would be medical oncology Pancreas, head, fine-needle aspiration: - Positive for malignant cells, adenocarcinoma. See microscopic description. Screened by on at . at [phone]. Recommendations: medical oncology referral
--- NOTE | 2020-05-16 10:09 | Pharmacy Report ---
Pharmacy Glycemic Short Note 2 - Date of Service May 16, 2020 - Glycemic Short BSG Results (Last 24 hours): 05/15/20 05/15/20 05/15/20 11:48 16:48 20:01 POC Glucose 147 H 257 H 282 H 05/16/20 07:37 POC Glucose 113 H OUTPATIENT ANTIDIABETIC REGIMEN: * Lantus 20 units qam, 25 units qpm * Lispro 5 units with meals plus sliding scale * metformin * A1c = 7.9% (05/11/20) ASSESSMENT: 05/16 * Patient received total of 29 units of insulin yesterday, of which 15 were basal insulin * Fasting BSG 113 mg/dL - continue with Lantus scale for HS * BSGs tend to climb each day at dinner and HS (breakfast,lunch BSGs stable) / plan to tighten CR more today PLAN FOR INPATIENT GLYCEMIC CONTROL: * Hold outpatient oral diabetes medications * Basal insulin * Lantus 10-15 units HS * Bolus insulin * NovoLog per scale ACHS or Q6hrs while NPO * Goal Range: Low 110 mg/dL - High 140 mg/dL * Correction Factor: 25 mg/dL/unit * Nutritional / Prandial insulin per carb ratio of 1 unit per 8 grams CHO consumed PLAN FOR DISCHARGE: * A1c = 7.9% * If PO intake remains poor at time of discharge, may need to adjust insulin doses as insulin requirements significantly less than outpatient needs
--- NOTE | 2020-05-16 12:59 | Discharge Summary ---
Date of Service May 16, 2020 Admission HPI Per Admitting Provider This is an 84-year-old male who resides at [facility] with PMH of type 2 diabetes, hypertension, dementia and other medical problems listed below who presents with generalized weakness and decreased appetite for the past few days. Patient has some dementia at baseline but has been more lethargic for the past few days with decreased appetite, per SNF staff. Also has had a few episodes of fecal incontinence, which is abnormal for him. Denies any fever chills. No abdominal pain. No headache, lightheadedness, chest pain, shortness of breath, nausea, vomiting or dysuria. Denies any melena or hematochezia. In ED, patient found to have leukocytosis of 17, platelet count of 420, T bili of 1.3, AST of 143, ALT of 390 and alk phos of 496. CT abdomen pelvis with evidence of pancreatic head mass measuring up to 5.0 cm suggestive of pancreatic adenocarcinoma resulting in pancreatic ductal dilation with mild dilation of the extrahepatic biliary tree. Also with distended gallbladder with cholelithiasis. ED physician discussed with general surgery, who recommended transfer to tertiary care facility. However, due to patient's age and previously stated wishes, daughter does not want to pursue invasive measures such as surgery. ED physician also discussed ERCP with gastroenterology as a potential palliative option, which family is currently discussing. Will continue IV fluids and antibiotics for likely UTI. Clear liquids for now and n.p.o. after midnight in case of ERCP. Patient is a DNR per discussion with daughter (POA). Principal Diagnosis PANCREATIC MASS Abnormal liver function test UTI Urinary retention Discharge Exam Constitutional WD/WN, vitals as above + thin Eyes + anicteric sclerae ENMT external ear and nose normal, oropharynx normal Neck trachea midline, no thyromegaly Respiratory normal respiratory effort, lungs clear to auscultation Cardiovascular RRR, no murmur, no edema Gastrointestinal (Abdomen) Percussion/Palpation: abdomen soft Musculoskeletal no cyanosis or clubbing, extremities motor strength 5/5 Skin no rashes, warm and dry Neurologic PERRL, EOMI, accommodation nl, no face palsy, no dysarthria moves all extremities, awake and + confused (baseline dementia ); no focal motor deficits Psychiatric Orientation: alert (baseline dementia ), oriented to person and cooperative; + not oriented to place and + not oriented to time Discharge Data Allergies Allergy/AdvReac Type Severity Reaction Status Date / Time No Known Allergies Allergy Unverified 05/11/20 13:53 Consultations 05/11/20 17:22 ED Decision to Admit Stat 05/11/20 21:14 Consult Case Management - Discharge Planning Routine Consult Gastroenterology Routine 05/14/20 09:52 Consult Urology Routine Procedures Performed Operation Date: 05/12/20 08:35 Actual Procedures p Esophagogastroduodenoscopy, Endoscopic Ultrasonography Upper(Not Applicable) - Cary Simons DO s Endoscopic Retrograde Cholangiopancreatography and Bile Duct Stent Placement(Not Applicable) - Cary Simons DO Ordered Studies 05/11/20 14:23 CT abd pelvis IV con only Stat 05/12/20 08:12 US upper EUS PACS images Routine 05/12/20 10:42 US upper EUS PACS images Routine 05/12/20 11:30 FL ERCP biliary ductal Routine Hospital Course (1) Pancreatic mass: s/p ERCP with pancreatic stent and brush biopsy on 05/12/20 -pathology : pancreatic adenocarcinoma appreciate input from GI CA 19-9 level elevated diet advance to soft diet tolerated well Abx for 5 days-on PO cipro , no aspirin or anticoagulation hx of significant wt loss , poor appetite -pancreatic mass noted in CT abdomen progressive weakness and deconditioning Family not interested in pursuing pursue invasive measures such as surgery (2) Transaminitis: s/p ERCP discussion as above LFT's contiues to improved , pt denies of any GI symptoms /tolerting diet (3) Complicated UTI (urinary tract infection): Abnormal UA. Urine culture and blood cultures pending. Continue empiric Zosyn -Prostatomegaly with chronic bladder outlet obstruction on CT abd/pelvis -Whitney placed for urinary retention -developed hematuria after Whitney catheter placement appreciate input from Urology , possible cause -complicated UTI /BPH , trauma from Whitney placement added Flomax on PO cipro for UTI Patient failed voiding trial, discharged to [facility] on chronic Whitney catheter (4) Diabetes: insulin SSI appreciate pharmacy consult for glycemic managment (5) HTN (hypertension): BP stable on Lisinopril plan Of care discharged with daughter Patient will be transferred to [facility], daughter is going to provide transport Total Time Total Time Spent Total Time Spent (In Minutes): 35 minutes Total Time Includes: Discharge Planning and Medication Reconciliation Discharge Plan Discharge Items Patient Disposition: Transfer Long-Term Fac Reason For Visit: TRANSAMINITIS,UTI Discharge Diagnosis: PANCREATIC MASS Abnormal liver function test UTI Urinary retention Condition on Discharge: Fair Activity: As commented below Activity Comment: TOLERATED Non-emergency contact: Primary Care Provider Call non-emergency contact if: you have any medication questions Follow-up/Referrals: Elsy Flannery DO [Primary Care Provider] - (Hospital follow up in a week ) Jenna Bledsoe MD [Hospitalist] - (Please call to schedule appointment with Oncology service in next few weeks ) Diet: Low Fat Diet Texture: Dental soft (bite-sized) Addtl Attending Provider Instructions: continue Whitney catheter Antibiotic for 7 days Hospital follow up with family physician in a week Pathology of Pancreatic mass confrims -malignancy//cancer please have follow up with hematology oncology at [facility] -to discuss about treatment options , prognosis and goals of care . Consider Palliative consult for discussion of goal of care Pending Studies at Discharge: No Stand-Alone Forms: My [facility] Skilled Items Patient informed of condition?: Yes DNR: Yes Discharge Level of Care: Other Communicable Disease: No Discharge Prognosis: Stable Lines: None Urinary Catheter: Yes Medications and DC Order Prescriptions: New pantoprazole 40 mg Tablet,Delayed Release (Dr/Ec) 40 mg PO BID 30 Days Qty: 60 RF: 3 ciprofloxacin HCl 500 mg Tablet 500 mg PO BID 7 Days Qty: 14 RF: 0 tamsulosin 0.4 mg Capsule 0.4 mg PO HS 30 Days Qty: 30 RF: 0 Continued lisinopril [Zestril] 5 mg tablet 2.5 mg PO DAILY RF: 0 cholecalciferol (vitamin D3) [Vitamin D3] 1,000 unit Tablet,Chewable 1,000 unit PO DAILY RF: 0 Lantus Solostar U-100 Insulin 100 unit/mL (3 mL) insulin pen 20 - 25 unit subcut AMPM RF: 0 acarbose 50 mg tablet 50 mg PO TIDM RF: 0 metformin 1,000 mg tablet 1,000 mg PO BIDM RF: 0 insulin lispro 100 unit/mL insulin pen 50 unit SUBCUT DAILY RF: 0 diclofenac sodium [Voltaren] 1 % Gel 2 g TOPICAL TID RF: 0 Discontinued simvastatin [Zocor] 20 mg tablet 20 mg PO PM RF: 0 Discharge Orders: Discharge Order (Routine); Ordered 05/16/20 Ordered By: Talisha Mendiola/Other Patient Handouts: Emptying and Cleaning Your ..., Indwelling Urinary Catheter Dc, Discharge Instructions Caring for ... Admission Data Admit Date/Time: 05/11/20 17:51 Attending Provider: Talisha Sage Admit Provider: Talisha Sage Primary Care Provider: Elsy Flannery Other Providers: Talisha Sage ; Dimas Gandhi ; Alejandro Palomino ; Anand Harrison ; Brandon Marquez ; Kelsey Guzmán ; Shelby Machado ; Clay Barajas ; Josi Barrios ; Morelia Marcelino ; Lacey Turner ; Johnny Hassan ; Harleen Espino ; Leyla Ball ; Marguerite Maldonado Montgomery Other Interventions: Discharge Summary Assessment (RN) Last Done: 05/16/20 13:45
--- NOTE | 2020-05-26 07:06 | Coding Query ---
CODING QUERY To promote full compliance with coding requirements relating to patient care, provider participation is requested in all cases of test desk trouble locator uncertainty. Please assist us with the question(s) below: Coding Question: Metabolic Encephalopathy was documented in the H&P but not mentioned throughout the record, Please clarify if the patient had Metabolic Encephalopathy upon admission. Thank you for your help! ( x) Metabolic Encephalopathy, present on admission ( ) Metabolic Encephalopathy, ruled-out ( ) Other, explain Thank you! Bhavna Smalls Principal Diagnosis: "that condition established after study, to be chiefly responsible for occasioning the admission of the patient to the hospital for care." Co-Existing Principal Diagnosis: "when two or more diagnoses equally meet the criteria for principal diagnosis as determined by the circumstances of admission, diagnostic work up, and/or therapy provided, and the Alphabetic Index, Tabular List, or another coding guideline does not provide sequencing direction, any one of the diagnoses may be sequenced first." "When the physician has documented what appears to be a current diagnosis in the body of the record, but has not included the diagnosis in the final diagnostic statement, the physician should be asked whether the diagnosis should be added." (Source Coding [facility] 2 QTR90. p3-4) ANGELA
== END 2020-05-16 14:15 | DRG 435 ==
LOC: ED 12:19 → 2N 17:51